=== PATIENT | male | born 1960 | race Caucasian/White ===

== ENCOUNTER 2017-01-08 19:13 | Emergency (ER) | payer SELFPAY ==
[~2017-01-08] VITALS: Ht 175.3 cm; Wt 74.5 kg
[~2017-01-08 19:13] MED LIST: ALPR1TAB2 PO; ASPI-496 PO; CARI350T PO; CLOP75TA PO; CYAN10002 IM; GUAI5SYR PO; GUAI600T22 PO; LEVO750T26 PO; LISI-170 PO; METF500T4 PO; OMEP-110 PO; OXYC1TAB8 PO; PHEN50TA4 PO; PROM25SU34 RC; SIMV20TA3 PO; TAMS-11 PO
[2017-01-08 19:17] VITALS: BP 152/86
== END 2017-01-08 20:29 | disposition home or self-care (01) ==
LOC: ED 20:26
DX: S50.01XA Contusion of right elbow, initial encounter (principal); I10 Essential (primary) hypertension; E78.00 Pure hypercholesterolemia, unspecified; E11.9 Type 2 diabetes mellitus without complications; I25.2 Old myocardial infarction; Y00.XXXA Assault by blunt object, initial encounter; Y93.89 Activity, other specified; Y92.89 Other specified places as the place of occurrence of the external cause; Y99.8 Other external cause status
CPT/HCPCS: 99283

== ENCOUNTER 2018-07-05 03:16 | Emergency (ER) | payer MEDICARE, OTHER ==
[~2018-07-05] VITALS: Ht 172.7 cm; Wt 60.0 kg
[~2018-07-05 03:16] MED LIST changes: -GUAI600T22 PO; +GUAI600T31 PO; +METF500T17 PO; -METF500T4 PO
[2018-07-05 03:19] VITALS: BP 140/83
[2018-07-05] MEDS ORDERED: IBUPROFEN 800 MG TABLET ONE (04:48)
[2018-07-05] MEDS ORDERED: IBUPROFEN 200 MG TABLET PO ONE (05:00)
== END 2018-07-05 04:56 | disposition home or self-care (01) ==
LOC: ED 04:40
DX: M25.572 Pain in left ankle and joints of left foot (principal); E78.00 Pure hypercholesterolemia, unspecified; I10 Essential (primary) hypertension; E11.9 Type 2 diabetes mellitus without complications; I25.2 Old myocardial infarction; F17.200 Nicotine dependence, unspecified, uncomplicated; Z86.73 Personal history of transient ischemic attack (TIA), and cerebral infarction without residual deficits; Z91.011 Allergy to milk products; Z88.8 Allergy status to other drugs, medicaments and biological substances
CPT/HCPCS: 99284

== ENCOUNTER 2018-07-27 09:05 | Emergency (ER) | payer MEDICARE ==
[~2018-07-27] VITALS: Ht 177.8 cm; Wt 6.0 kg
[2018-07-27 10:10] LABS: BASOPHILS # (AUTO) 0.01 x10^3/uL (0-0.1); BASOPHILS % (AUTO) 0 % (0-1); EOSINOPHILS # (AUTO) 0.24 x10^3/uL (0-0.4); EOSINOPHILS % (AUTO) 3 % (1-7); LYMPHOCYTES # (AUTO) 1.34 x10^3/uL (1-3.4); LYMPHOCYTES % (AUTO) 14 % (22-44); MD NO; MEAN CORPUSCULAR HEMOGLOBIN 31.5 pg (27.5-34.5); MEAN CORPUSCULAR HGB CONC 33.8 g/dL (33.2-36.2); MEAN PLATELET VOLUME 9.2 fL (7.4-10.4); MONOCYTES # (AUTO) 0.93 x10^3/uL (0.2-0.8); MONOCYTES % (AUTO) 10 % (2-9); NEUTROPHILS # (AUTO) 7.04 x10^3/uL (1.8-6.8); NEUTROPHILS % (AUTO) 74 % (42-75); PLATELET COUNT 180 x10^3/uL (130-400); RED BLOOD COUNT 5.55 x10^6/uL (4.38-5.82); RED CELL DISTRIBUTION WIDTH 16.9 % (9.4-14.8)
[2018-07-27 10:23] LABS: ALBUMIN 3.3 g/dL (3.4-5.0); ANION GAP 8 mmol/L (5-15); CALCIUM 8.3 mg/dL (8.5-10.1); CHLORIDE 105 mmol/L (98-107); CREATININE 0.71 mg/dL (0.7-1.3)
[2018-07-27 10:26] LABS: TROPONIN I < 0.015 ng/mL (0.000-0.045)
[2018-07-27 12:30] LABS: TROPONIN I < 0.015 ng/mL (0.000-0.045)
[2018-07-27 12:56] VITALS: BP 144/84
== END 2018-07-27 12:58 | disposition home or self-care (01) ==
LOC: ED 09:40
DX: R07.89 Other chest pain (principal); E78.00 Pure hypercholesterolemia, unspecified; I25.2 Old myocardial infarction; E11.9 Type 2 diabetes mellitus without complications; I10 Essential (primary) hypertension; E78.5 Hyperlipidemia, unspecified; I25.10 Atherosclerotic heart disease of native coronary artery without angina pectoris; Z86.73 Personal history of transient ischemic attack (TIA), and cerebral infarction without residual deficits; Z88.8 Allergy status to other drugs, medicaments and biological substances
CPT/HCPCS: 36415; 71045; 80048; 82040; 84484; 85025; 93005; 99285

== ENCOUNTER 2019-05-30 20:50 | Emergency (ER) | payer MEDICARE ==
[~2019-05-30] VITALS: Ht 177.8 cm; Wt 72.7 kg
[2019-05-31 03:29] VITALS: BP 128/88
== END 2019-05-31 03:32 | disposition home or self-care (01) ==
LOC: ED 05-31 03:00
DX: G44.221 Chronic tension-type headache, intractable (principal); Z72.9 Problem related to lifestyle, unspecified; I10 Essential (primary) hypertension; I25.10 Atherosclerotic heart disease of native coronary artery without angina pectoris; I25.2 Old myocardial infarction; E78.5 Hyperlipidemia, unspecified; E78.00 Pure hypercholesterolemia, unspecified; E11.9 Type 2 diabetes mellitus without complications; F17.200 Nicotine dependence, unspecified, uncomplicated
CPT/HCPCS: 99283

== ENCOUNTER 2019-07-16 16:54 | Inpatient (IN) | payer MEDICARE, OTHER ==
[~2019-07-16] VITALS: Ht 177.8 cm; Wt 76.8 kg
[~2019-07-16 16:54] MED LIST changes: +ASPI81TA45 PO; +DOXE25CA PO; +FLUO20CA8 PO; +METF500T PO; +NICO-486 TD; +TRAM50TA2 PO
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
--- NOTE | 2019-07-16 17:41 | NUR ---
PT IS LEGAL HOLD. NURSE PRACTIONER IS SUPPOSE TO COME HERE TO REEVAUATE THE PT AROUND 6PM.
[2019-07-16 17:42] LABS: BASOPHILS # (AUTO) 0.05 x10^3/uL (0-0.1); BASOPHILS % (AUTO) 1 % (0-1); EOSINOPHILS # (AUTO) 0.41 x10^3/uL (0-0.4); EOSINOPHILS % (AUTO) 5 % (1-7); LYMPHOCYTES # (AUTO) 1.25 x10^3/uL (1-3.4); LYMPHOCYTES % (AUTO) 16 % (22-44); MD NO; MEAN CORPUSCULAR HEMOGLOBIN 32.8 pg (27.5-34.5); MEAN CORPUSCULAR HGB CONC 33.7 g/dL (33.2-36.2); MEAN CORPUSCULAR VOLUME 97.3 fL (81-97); MONOCYTES # (AUTO) 0.67 x10^3/uL (0.2-0.8); MONOCYTES % (AUTO) 9 % (2-9); NEUTROPHILS # (AUTO) 5.34 x10^3/uL (1.8-6.8); NEUTROPHILS % (AUTO) 69 % (42-75); PLATELET COUNT 203 x10^3/uL (130-400); RED CELL DISTRIBUTION WIDTH 13.1 % (9.4-14.8)
[2019-07-16 17:47] LABS: ALBUMIN 3.3 g/dL (3.4-5.0); ANION GAP 7 mmol/L (5-15); CALCIUM 8.7 mg/dL (8.5-10.1); CHLORIDE 102 mmol/L (98-107); SALICYLATE LEVEL 2.6 mg/dL (2.8-20.0)
[2019-07-16 17:48] LABS: CREATININE 0.96 mg/dL (0.7-1.3)
--- NOTE | 2019-07-16 18:03 | NUR ---
MEAL TRAY ORDERED.
--- NOTE | 2019-07-16 18:30 | NUR ---
PT REFUSED TO CHANGE AND THIS RN TALKED TO [facility] NURSE. SHE STATES "PT IS SLEEPING AND JUST LEAVE HIM ALONE UNTILL NURSE PRACTIONER COMES HERE."
--- NOTE | 2019-07-16 18:36 | NUR ---
PT IS NOT ABLE TO PROVIDE URINE SAMPLE AT THIS TIME.
--- NOTE | 2019-07-16 18:58 | NUR ---
REPORT GIVEN TO YARIEL WEEKS.
--- NOTE | 2019-07-16 19:52 | NUR ---
assumed care of pt hold disolved by yeison kemp per emi charge, pt to be admitted at this time
[2019-07-16] MEDS ORDERED: DOXEPIN 25 MG CAPSULE PO PRN (20:00)
[2019-07-16 22:30] VITALS: BP 157/88
[2019-07-17] MEDS: ENOXAPARIN 40 MG/0.4 ML SQ SCH ×2 (00:30→23:39)
[2019-07-17] MEDS ORDERED: hydrALAzine 20 MG/ML, 1ML IVPush PRN (00:30)
[2019-07-17] MEDS ORDERED: ACETAMINOPHEN 325 MG TABLET PO PRN (00:30)
[2019-07-17 01:58] VITALS: BP 149/81
[2019-07-17 02:47] LABS: AMPHETAMINE SCREEN, URINE Negative (Negative); BARBITURATE SCREEN, URINE Negative (Negative); BENZODIAZEPINE SCREEN, URINE Negative (Negative); CANNABINOID SCREEN, URINE Negative (Negative); COCAINE SCREEN, URINE Negative (Negative); METHADONE SCREEN, URINE Negative (Negative); OPIATE SCREEN, URINE Negative (Negative)
[2019-07-17] MEDS: TRAZODONE 50MG TABLET PO PRN (04:45)
[2019-07-17] MEDS: LIDODERM 5% PATCH TD PRN (04:46)
[2019-07-17 08:48] VITALS: BP 157/91
[2019-07-17] MEDS: LISINOPRIL 20 MG TABLET PO SCH (10:30)
[2019-07-17] MEDS: ASPIRIN 81 MG TABLET EC PO SCH (10:30)
[2019-07-17] MEDS: metFORMIN 500 MG TABLET PO SCH ×2 (10:30→19:33)
[2019-07-17] MEDS: FLUOXETINE HCL 20 MG CAPSULE PO SCH (10:30)
[2019-07-17 12:14] LABS: HEMOGLOBIN A1C 6.9 % (4.2-6.3)
[2019-07-17 13:20] VITALS: BP 138/62
[2019-07-17 18:53] VITALS: BP 126/78
[2019-07-17] MEDS: SIMVASTATIN 20 MG TABLET PO SCH (19:34)
[2019-07-17 21:11] LABS: MICROSCOPIC INDICATED
[2019-07-18 02:22] VITALS: BP 121/65
[2019-07-18 06:09] LABS: BASOPHILS # (AUTO) 0.07 x10^3/uL (0-0.1); BASOPHILS % (AUTO) 1 % (0-1); EOSINOPHILS # (AUTO) 0.43 x10^3/uL (0-0.4); EOSINOPHILS % (AUTO) 6 % (1-7); LYMPHOCYTES # (AUTO) 2.18 x10^3/uL (1-3.4); LYMPHOCYTES % (AUTO) 30 % (22-44); MD NO; MEAN CORPUSCULAR HEMOGLOBIN 33.1 pg (27.5-34.5); MEAN CORPUSCULAR HGB CONC 33.8 g/dL (33.2-36.2); MEAN CORPUSCULAR VOLUME 97.9 fL (81-97); MEAN PLATELET VOLUME 9.7 fL (7.4-10.4); MONOCYTES # (AUTO) 0.72 x10^3/uL (0.2-0.8); MONOCYTES % (AUTO) 10 % (2-9); NEUTROPHILS % (AUTO) 53 % (42-75); PLATELET COUNT 175 x10^3/uL (130-400); RED BLOOD COUNT 4.41 x10^6/uL (4.38-5.82); RED CELL DISTRIBUTION WIDTH 12.9 % (9.4-14.8)
[2019-07-18 06:27] LABS: ANION GAP 6 mmol/L (5-15); CALCIUM 8.3 mg/dL (8.5-10.1); CHLORIDE 107 mmol/L (98-107); CREATININE 0.73 mg/dL (0.7-1.3)
[2019-07-18 07:30] VITALS: BP 134/81
[2019-07-18] MEDS: LISINOPRIL 20 MG TABLET PO SCH (08:09)
[2019-07-18] MEDS: ASPIRIN 81 MG TABLET EC PO SCH (08:10)
[2019-07-18] MEDS: metFORMIN 500 MG TABLET PO SCH ×2 (08:10→19:55)
[2019-07-18] MEDS: FLUOXETINE HCL 20 MG CAPSULE PO SCH ×2 (08:10→13:00)
[2019-07-18] MEDS ORDERED: LORazepam 2 MG/ML, 1ML IVPush ONE (09:00)
[2019-07-18] MEDS: CYANOCOBALAMIN 1,000 MCG/ML, 1ML IM SCH (09:00)
[2019-07-18] MEDS ORDERED: GADOTERATE 7.5 MMOL/15 ML SYR ONE (10:15)
[2019-07-18 13:50] VITALS: BP 138/62
[2019-07-18 19:11] VITALS: BP 152/83
[2019-07-18] MEDS: SIMVASTATIN 20 MG TABLET PO SCH (19:55)
[2019-07-18] MEDS: DOXEPIN 25 MG CAPSULE PO SCH (19:55)
[2019-07-19 03:31] VITALS: BP 144/87
[2019-07-19 07:10] VITALS: BP 163/93
[2019-07-19] MEDS: FLUOXETINE HCL 20 MG CAPSULE PO SCH ×2 (09:00→09:50)
[2019-07-19] MEDS: CYANOCOBALAMIN 1,000 MCG/ML, 1ML IM SCH (09:00)
[2019-07-19] MEDS: ENOXAPARIN 40 MG/0.4 ML SQ SCH (09:00)
[2019-07-19] MEDS: ASPIRIN 81 MG TABLET EC PO SCH (09:50)
[2019-07-19] MEDS: LISINOPRIL 20 MG TABLET PO SCH (09:50)
[2019-07-19] MEDS: metFORMIN 500 MG TABLET PO SCH ×2 (09:50→21:02)
[2019-07-19 15:30] VITALS: BP 167/76
[2019-07-19 18:59] VITALS: BP 148/77
[2019-07-19] MEDS: SIMVASTATIN 20 MG TABLET PO SCH (21:03)
[2019-07-19] MEDS: DOXEPIN 25 MG CAPSULE PO SCH (21:03)
[2019-07-20 01:52] VITALS: BP 146/84
[2019-07-20] MEDS: LIDODERM 5% PATCH TD PRN (02:17)
[2019-07-20 07:03] VITALS: BP 137/74
[2019-07-20] MEDS: CYANOCOBALAMIN 1,000 MCG/ML, 1ML IM SCH (09:00)
[2019-07-20] MEDS: FLUOXETINE HCL 20 MG CAPSULE PO SCH ×2 (09:00→09:39)
[2019-07-20] MEDS: ENOXAPARIN 40 MG/0.4 ML SQ SCH (09:00)
[2019-07-20] MEDS: LISINOPRIL 20 MG TABLET PO SCH (09:39)
[2019-07-20] MEDS: ASPIRIN 81 MG TABLET EC PO SCH (09:39)
[2019-07-20] MEDS: metFORMIN 500 MG TABLET PO SCH ×2 (09:39→20:34)
[2019-07-20 14:10] VITALS: BP 137/78
[2019-07-20 18:33] VITALS: BP 125/79
[2019-07-20] MEDS: DOXEPIN 25 MG CAPSULE PO SCH (20:34)
[2019-07-20] MEDS: SIMVASTATIN 20 MG TABLET PO SCH (20:34)
[2019-07-21 01:28] VITALS: BP 146/93
[2019-07-21 07:35] VITALS: BP 121/65
[2019-07-21] MEDS: LISINOPRIL 20 MG TABLET PO SCH (08:26)
[2019-07-21] MEDS: ASPIRIN 81 MG TABLET EC PO SCH (08:26)
[2019-07-21] MEDS: FLUOXETINE HCL 20 MG CAPSULE PO SCH ×2 (08:26→08:27)
[2019-07-21] MEDS: metFORMIN 500 MG TABLET PO SCH ×2 (08:26→20:43)
[2019-07-21] MEDS: ENOXAPARIN 40 MG/0.4 ML SQ SCH (08:27)
[2019-07-21] MEDS: CYANOCOBALAMIN 1,000 MCG/ML, 1ML IM SCH (09:08)
[2019-07-21] MEDS ORDERED: FLU VAC QS 19-20(4YR UP)CEL/PF 0.5 ML IM-VACC ONE (09:30)
[2019-07-21] MEDS ORDERED: FLU VACC QS2019-20 36MOS UP/PF 0.5 ML IM-VACC ONE ×2 (09:30→10:30)
[2019-07-21 13:15] VITALS: BP 142/75
[2019-07-21 19:56] VITALS: BP 136/78
[2019-07-21] MEDS: SIMVASTATIN 20 MG TABLET PO SCH (20:43)
[2019-07-21] MEDS: DOXEPIN 25 MG CAPSULE PO SCH (20:44)
[2019-07-22 00:30] VITALS: BP 145/85
[2019-07-22 05:30] LABS: ANION GAP 6 mmol/L (5-15); CALCIUM 8.5 mg/dL (8.5-10.1); CHLORIDE 105 mmol/L (98-107)
[2019-07-22 05:31] LABS: CREATININE 0.68 mg/dL (0.7-1.3)
[2019-07-22 08:08] VITALS: BP 144/74
[2019-07-22] MEDS: CYANOCOBALAMIN 1,000 MCG/ML, 1ML IM SCH (09:00)
[2019-07-22] MEDS: metFORMIN 500 MG TABLET PO SCH ×2 (09:50→21:26)
[2019-07-22] MEDS: ASPIRIN 81 MG TABLET EC PO SCH (09:50)
[2019-07-22] MEDS: FLUOXETINE HCL 20 MG CAPSULE PO SCH (09:50)
[2019-07-22] MEDS: LISINOPRIL 20 MG TABLET PO SCH (09:50)
[2019-07-22] MEDS: ENOXAPARIN 40 MG/0.4 ML SQ SCH (09:57)
[2019-07-22 14:10] VITALS: BP 136/82
[2019-07-22] MEDS: POTASSIUM CHLORIDE 20 MEQ TAB.ER.PRT PO SCH ×2 (17:04→18:29)
[2019-07-22] MEDS: DOCUSATE 100 MG CAPSULE PO PRN (18:29)
[2019-07-22 20:16] VITALS: BP 128/65
[2019-07-22] MEDS: DOXEPIN 25 MG CAPSULE PO SCH (21:25)
[2019-07-22] MEDS: SIMVASTATIN 20 MG TABLET PO SCH (21:26)
[2019-07-23 01:13] VITALS: BP 138/75
[2019-07-23 05:55] LABS: CHLORIDE 107 mmol/L (98-107)
[2019-07-23 05:59] LABS: ANION GAP 6 mmol/L (5-15); CALCIUM 9.2 mg/dL (8.5-10.1); CREATININE 0.67 mg/dL (0.7-1.3)
[2019-07-23] MEDS: CYANOCOBALAMIN 1,000 MCG/ML, 1ML IM SCH (09:00)
[2019-07-23 09:02] VITALS: BP 143/87
[2019-07-23] MEDS: metFORMIN 500 MG TABLET PO SCH ×2 (09:54→20:48)
[2019-07-23] MEDS: LISINOPRIL 20 MG TABLET PO SCH (09:54)
[2019-07-23] MEDS: ASPIRIN 81 MG TABLET EC PO SCH (09:54)
[2019-07-23] MEDS: FLUOXETINE HCL 20 MG CAPSULE PO SCH (09:54)
[2019-07-23] MEDS: ENOXAPARIN 40 MG/0.4 ML SQ SCH (09:55)
[2019-07-23] MEDS: LIDODERM 5% PATCH TD PRN (09:55)
--- NOTE | 2019-07-23 11:42 | NUR ---
REC: Suhas/darleen; wil salomon per patient request Addendum: 07/23/19 at 1143 by Cassandra MORAN Amended: Links added.
[2019-07-23] MEDS: POLYETHYLENE GLYCOL 17 GM PACKET PO SCH (12:00)
[2019-07-23 13:54] VITALS: BP 149/80
[2019-07-23 18:51] VITALS: BP 138/78
[2019-07-23] MEDS: SIMVASTATIN 20 MG TABLET PO SCH (20:29)
[2019-07-23] MEDS: DOXEPIN 25 MG CAPSULE PO SCH (20:30)
[2019-07-23] MEDS: HYDROcodone/APAP 5/325 TABLET PO PRN (21:33)
[2019-07-24 01:23] VITALS: BP 117/72
[2019-07-24] MEDS: CYANOCOBALAMIN 1,000 MCG/ML, 1ML IM SCH (09:00)
[2019-07-24] MEDS: metFORMIN 500 MG TABLET PO SCH ×2 (09:07→20:04)
[2019-07-24] MEDS: FLUOXETINE HCL 20 MG CAPSULE PO SCH (09:08)
[2019-07-24] MEDS: LISINOPRIL 20 MG TABLET PO SCH (09:08)
[2019-07-24] MEDS: ASPIRIN 81 MG TABLET EC PO SCH (09:08)
[2019-07-24] MEDS: ENOXAPARIN 40 MG/0.4 ML SQ SCH (09:08)
[2019-07-24 09:41] VITALS: BP 133/80
[2019-07-24] MEDS: POLYETHYLENE GLYCOL 17 GM PACKET PO SCH (09:54)
[2019-07-24] MEDS ORDERED: HYDROcodone/APAP 10/325 MG TABLET ONE (10:21)
[2019-07-24] MEDS: HYDROcodone/APAP 5/325 TABLET PO PRN ×3 (10:39→20:04)
[2019-07-24 13:34] VITALS: BP 125/75
[2019-07-24] MEDS: DOCUSATE 100 MG CAPSULE PO PRN (14:06)
[2019-07-24 19:32] VITALS: BP 130/79
[2019-07-24] MEDS: DOXEPIN 25 MG CAPSULE PO SCH (20:03)
[2019-07-24] MEDS: SIMVASTATIN 20 MG TABLET PO SCH (20:04)
[2019-07-24] MEDS: TRAZODONE 50MG TABLET PO PRN (22:05)
[2019-07-25 02:03] VITALS: BP 118/72
[2019-07-25] MEDS: POLYETHYLENE GLYCOL 17 GM PACKET PO SCH (08:44)
[2019-07-25] MEDS: metFORMIN 500 MG TABLET PO SCH ×2 (08:44→20:05)
[2019-07-25] MEDS: CYANOCOBALAMIN 1,000 MCG TABLET PO SCH (08:44)
[2019-07-25] MEDS: FLUOXETINE HCL 20 MG CAPSULE PO SCH (08:44)
[2019-07-25] MEDS: ASPIRIN 81 MG TABLET EC PO SCH (08:44)
[2019-07-25] MEDS: LISINOPRIL 20 MG TABLET PO SCH (08:45)
[2019-07-25] MEDS: ENOXAPARIN 40 MG/0.4 ML SQ SCH (08:45)
[2019-07-25] MEDS: HYDROcodone/APAP 5/325 TABLET PO PRN ×2 (08:54→17:11)
[2019-07-25 08:56] VITALS: BP 145/68
[2019-07-25 14:13] VITALS: BP_SYST 115; BP_SYST 135; BP_DIAS 62; BP_DIAS 81
[2019-07-25 18:11] LABS: BASOPHILS # (AUTO) 0.03 x10^3/uL (0-0.1); BASOPHILS % (AUTO) 0 % (0-1); EOSINOPHILS # (AUTO) 0.57 x10^3/uL (0-0.4); EOSINOPHILS % (AUTO) 6 % (1-7); LYMPHOCYTES # (AUTO) 1.35 x10^3/uL (1-3.4); LYMPHOCYTES % (AUTO) 14 % (22-44); MD NO; MEAN CORPUSCULAR HEMOGLOBIN 32.5 pg (27.5-34.5); MEAN CORPUSCULAR HGB CONC 32.5 g/dL (33.2-36.2); MEAN PLATELET VOLUME 10.3 fL (7.4-10.4); MONOCYTES # (AUTO) 0.74 x10^3/uL (0.2-0.8); MONOCYTES % (AUTO) 8 % (2-9); NEUTROPHILS # (AUTO) 7.05 x10^3/uL (1.8-6.8); NEUTROPHILS % (AUTO) 72 % (42-75); PLATELET COUNT 166 x10^3/uL (130-400)
[2019-07-25 18:18] LABS: INTERNATIONAL NORMALIZED RATIO 1.08 (0.93-1.1); PROTHROMBIN TIME 11.3 Seconds (9.6-11.5)
[2019-07-25 18:21] LABS: ANION GAP 5 mmol/L (5-15); CALCIUM 8.6 mg/dL (8.5-10.1); CHLORIDE 105 mmol/L (98-107); CREATININE 0.85 mg/dL (0.7-1.3)
[2019-07-25 18:46] VITALS: BP 127/64
[2019-07-25] MEDS: DOXEPIN 25 MG CAPSULE PO SCH (20:04)
[2019-07-25] MEDS: SIMVASTATIN 20 MG TABLET PO SCH (20:04)
[2019-07-26 00:17] VITALS: BP 127/78
[2019-07-26] MEDS: HYDROcodone/APAP 5/325 TABLET PO PRN ×3 (00:24→17:43)
[2019-07-26] MEDS: metFORMIN 500 MG TABLET PO SCH ×2 (08:15→20:24)
[2019-07-26] MEDS: ASPIRIN 81 MG TABLET EC PO SCH (08:15)
[2019-07-26] MEDS: POLYETHYLENE GLYCOL 17 GM PACKET PO SCH (08:15)
[2019-07-26] MEDS: LISINOPRIL 20 MG TABLET PO SCH (08:15)
[2019-07-26] MEDS: FLUOXETINE HCL 20 MG CAPSULE PO SCH (08:15)
[2019-07-26] MEDS: CYANOCOBALAMIN 1,000 MCG TABLET PO SCH (08:16)
[2019-07-26] MEDS: ENOXAPARIN 40 MG/0.4 ML SQ SCH (08:16)
[2019-07-26 08:37] VITALS: BP 133/83
[2019-07-26 14:43] VITALS: BP 123/74
[2019-07-26] MEDS: DOCUSATE 100 MG CAPSULE PO PRN (17:43)
[2019-07-26 19:41] VITALS: BP 151/78
[2019-07-26] MEDS: DOXEPIN 25 MG CAPSULE PO SCH (20:24)
[2019-07-26] MEDS: SIMVASTATIN 20 MG TABLET PO SCH (20:24)
[2019-07-26] MEDS: TRAZODONE 50MG TABLET PO PRN (20:24)
[2019-07-27 01:31] VITALS: BP 132/77
[2019-07-27 08:35] VITALS: BP 115/74
[2019-07-27] MEDS: CYANOCOBALAMIN 1,000 MCG TABLET PO SCH (08:56)
[2019-07-27] MEDS: ENOXAPARIN 40 MG/0.4 ML SQ SCH (08:56)
[2019-07-27] MEDS: POLYETHYLENE GLYCOL 17 GM PACKET PO SCH (08:56)
[2019-07-27] MEDS: ASPIRIN 81 MG TABLET EC PO SCH (08:56)
[2019-07-27] MEDS: HYDROcodone/APAP 5/325 TABLET PO PRN ×3 (08:57→21:10)
[2019-07-27] MEDS: FLUOXETINE HCL 20 MG CAPSULE PO SCH (08:57)
[2019-07-27] MEDS: metFORMIN 500 MG TABLET PO SCH ×2 (08:58→21:09)
[2019-07-27] MEDS: LISINOPRIL 20 MG TABLET PO SCH (08:58)
[2019-07-27] MEDS: GABAPENTIN 100 MG CAPSULE PO PRN ×2 (12:19→21:09)
[2019-07-27 14:57] VITALS: BP 136/77
[2019-07-27 19:04] VITALS: BP 126/80
[2019-07-27] MEDS: DOXEPIN 25 MG CAPSULE PO SCH (21:08)
[2019-07-27] MEDS: SIMVASTATIN 20 MG TABLET PO SCH (21:09)
[2019-07-27] MEDS: TRAZODONE 50MG TABLET PO PRN (21:12)
[2019-07-28 04:00] VITALS: BP 143/76
[2019-07-28 08:00] VITALS: BP 130/79
[2019-07-28] MEDS: CYANOCOBALAMIN 1,000 MCG TABLET PO SCH (09:00)
[2019-07-28] MEDS: ENOXAPARIN 40 MG/0.4 ML SQ SCH (09:00)
[2019-07-28] MEDS: metFORMIN 500 MG TABLET PO SCH ×2 (09:00→19:58)
[2019-07-28] MEDS: ASPIRIN 81 MG TABLET EC PO SCH (09:00)
[2019-07-28] MEDS: POLYETHYLENE GLYCOL 17 GM PACKET PO SCH (09:00)
[2019-07-28] MEDS: FLUOXETINE HCL 20 MG CAPSULE PO SCH (09:00)
[2019-07-28] MEDS: GABAPENTIN 100 MG CAPSULE PO PRN ×2 (09:01→19:58)
[2019-07-28] MEDS: HYDROcodone/APAP 5/325 TABLET PO PRN ×2 (09:01→19:57)
[2019-07-28] MEDS: LISINOPRIL 20 MG TABLET PO SCH (09:02)
[2019-07-28 15:11] VITALS: BP 112/71
[2019-07-28 18:41] VITALS: BP 122/71
[2019-07-28] MEDS: DOXEPIN 25 MG CAPSULE PO SCH (19:57)
[2019-07-28] MEDS: TRAZODONE 50MG TABLET PO PRN ×2 (19:58→20:51)
[2019-07-28] MEDS: SIMVASTATIN 20 MG TABLET PO SCH (19:58)
[2019-07-29 00:38] VITALS: BP 115/66
[2019-07-29] MEDS: HYDROcodone/APAP 5/325 TABLET PO PRN ×4 (03:46→23:26)
[2019-07-29 05:09] LABS: CREATININE 0.67 mg/dL (0.7-1.3)
[2019-07-29 07:14] VITALS: BP 109/63
[2019-07-29] MEDS: ASPIRIN 81 MG TABLET EC PO SCH (10:03)
[2019-07-29] MEDS: metFORMIN 500 MG TABLET PO SCH ×2 (10:03→20:11)
[2019-07-29] MEDS: CYANOCOBALAMIN 1,000 MCG TABLET PO SCH (10:04)
[2019-07-29] MEDS: FLUOXETINE HCL 20 MG CAPSULE PO SCH (10:05)
[2019-07-29] MEDS: LISINOPRIL 20 MG TABLET PO SCH (10:05)
[2019-07-29] MEDS: DOCUSATE 100 MG CAPSULE PO PRN (10:09)
[2019-07-29] MEDS: POLYETHYLENE GLYCOL 17 GM PACKET PO SCH (10:10)
[2019-07-29] MEDS: ENOXAPARIN 40 MG/0.4 ML SQ SCH (10:13)
[2019-07-29 13:35] VITALS: BP 117/71
[2019-07-29 19:41] VITALS: BP 147/88
[2019-07-29] MEDS: SIMVASTATIN 20 MG TABLET PO SCH (20:11)
[2019-07-29] MEDS: DOXEPIN 25 MG CAPSULE PO SCH (20:11)
[2019-07-29] MEDS: TRAZODONE 50MG TABLET PO PRN (21:16)
[2019-07-30 00:13] VITALS: BP 109/61
[2019-07-30 07:00] VITALS: BP 151/82
[2019-07-30] MEDS: FLUOXETINE HCL 20 MG CAPSULE PO SCH (10:19)
[2019-07-30] MEDS: CYANOCOBALAMIN 1,000 MCG TABLET PO SCH (10:19)
[2019-07-30] MEDS: ASPIRIN 81 MG TABLET EC PO SCH (10:19)
[2019-07-30] MEDS: ENOXAPARIN 40 MG/0.4 ML SQ SCH (10:21)
[2019-07-30] MEDS: POLYETHYLENE GLYCOL 17 GM PACKET PO SCH (10:22)
[2019-07-30] MEDS: metFORMIN 500 MG TABLET PO SCH ×2 (10:29→17:21)
[2019-07-30] MEDS: HYDROcodone/APAP 5/325 TABLET PO PRN ×2 (10:31→17:23)
[2019-07-30] MEDS: LISINOPRIL 20 MG TABLET PO SCH (10:33)
[2019-07-30 13:35] VITALS: BP 163/90
[2019-07-30 19:50] VITALS: BP 150/76
[2019-07-30] MEDS: DOXEPIN 25 MG CAPSULE PO SCH (20:16)
[2019-07-30] MEDS: SIMVASTATIN 20 MG TABLET PO SCH (20:16)
[2019-07-31 01:39] VITALS: BP 132/63
[2019-07-31] MEDS: HYDROcodone/APAP 5/325 TABLET PO PRN ×4 (01:53→22:58)
[2019-07-31] MEDS: ASPIRIN 81 MG TABLET EC PO SCH (08:47)
[2019-07-31] MEDS: FLUOXETINE HCL 20 MG CAPSULE PO SCH (08:47)
[2019-07-31] MEDS: metFORMIN 500 MG TABLET PO SCH ×2 (08:47→16:47)
[2019-07-31] MEDS: POLYETHYLENE GLYCOL 17 GM PACKET PO SCH (08:48)
[2019-07-31] MEDS: LISINOPRIL 20 MG TABLET PO SCH (08:48)
[2019-07-31] MEDS: ENOXAPARIN 40 MG/0.4 ML SQ SCH (08:48)
[2019-07-31] MEDS: CYANOCOBALAMIN 1,000 MCG TABLET PO SCH (08:48)
[2019-07-31 10:56] VITALS: BP 128/75
[2019-07-31 15:31] VITALS: BP 136/77
[2019-07-31 19:49] VITALS: BP 137/77
[2019-07-31] MEDS: DOXEPIN 25 MG CAPSULE PO SCH (20:09)
[2019-07-31] MEDS: SIMVASTATIN 20 MG TABLET PO SCH (20:09)
[2019-08-01 00:34] VITALS: BP 158/72
[2019-08-01] MEDS: TRAZODONE 50MG TABLET PO PRN ×2 (00:38→22:59)
[2019-08-01 05:13] LABS: CREATININE 0.69 mg/dL (0.7-1.3)
[2019-08-01] MEDS: FLUOXETINE HCL 20 MG CAPSULE PO SCH (07:56)
[2019-08-01] MEDS: ASPIRIN 81 MG TABLET EC PO SCH (07:57)
[2019-08-01] MEDS: metFORMIN 500 MG TABLET PO SCH ×2 (07:57→16:22)
[2019-08-01] MEDS: HYDROcodone/APAP 5/325 TABLET PO PRN ×3 (07:57→22:28)
[2019-08-01] MEDS: LISINOPRIL 20 MG TABLET PO SCH (07:57)
[2019-08-01 08:10] VITALS: BP 142/83
[2019-08-01] MEDS: ENOXAPARIN 40 MG/0.4 ML SQ SCH (09:00)
[2019-08-01] MEDS: CYANOCOBALAMIN 1,000 MCG TABLET PO SCH (09:00)
[2019-08-01] MEDS: POLYETHYLENE GLYCOL 17 GM PACKET PO SCH (09:00)
[2019-08-01 14:37] VITALS: BP 144/77
[2019-08-01 19:37] VITALS: BP 137/81
[2019-08-01] MEDS: SIMVASTATIN 20 MG TABLET PO SCH (20:13)
[2019-08-01] MEDS: DOXEPIN 25 MG CAPSULE PO SCH (20:13)
[2019-08-02 00:30] VITALS: BP 120/76
[2019-08-02 06:58] VITALS: BP 123/72
[2019-08-02] MEDS: ENOXAPARIN 40 MG/0.4 ML SQ SCH (08:12)
[2019-08-02] MEDS: CYANOCOBALAMIN 1,000 MCG TABLET PO SCH (08:12)
[2019-08-02] MEDS: metFORMIN 500 MG TABLET PO SCH ×2 (08:12→16:34)
[2019-08-02] MEDS: FLUOXETINE HCL 20 MG CAPSULE PO SCH (08:13)
[2019-08-02] MEDS: LISINOPRIL 20 MG TABLET PO SCH (08:13)
[2019-08-02] MEDS: ASPIRIN 81 MG TABLET EC PO SCH (08:13)
[2019-08-02] MEDS: POLYETHYLENE GLYCOL 17 GM PACKET PO SCH (08:13)
[2019-08-02] MEDS: HYDROcodone/APAP 5/325 TABLET PO PRN ×3 (08:17→22:49)
[2019-08-02 14:01] VITALS: BP 134/79
[2019-08-02 19:06] VITALS: BP 131/74
[2019-08-02] MEDS: SIMVASTATIN 20 MG TABLET PO SCH (20:18)
[2019-08-02] MEDS: DOXEPIN 25 MG CAPSULE PO SCH (20:19)
[2019-08-03 01:13] VITALS: BP 145/86
[2019-08-03] MEDS: HYDROcodone/APAP 5/325 TABLET PO PRN ×3 (05:05→23:44)
[2019-08-03] MEDS: POLYETHYLENE GLYCOL 17 GM PACKET PO SCH (07:39)
[2019-08-03] MEDS: ASPIRIN 81 MG TABLET EC PO SCH (08:18)
[2019-08-03] MEDS: ENOXAPARIN 40 MG/0.4 ML SQ SCH (08:19)
[2019-08-03] MEDS: LISINOPRIL 20 MG TABLET PO SCH (08:19)
[2019-08-03] MEDS: FLUOXETINE HCL 20 MG CAPSULE PO SCH (08:19)
[2019-08-03] MEDS: metFORMIN 500 MG TABLET PO SCH ×2 (08:19→16:54)
[2019-08-03] MEDS: CYANOCOBALAMIN 1,000 MCG TABLET PO SCH (08:19)
[2019-08-03 08:40] VITALS: BP 131/57
[2019-08-03 15:02] VITALS: BP 147/70
[2019-08-03 18:57] VITALS: BP 126/73
[2019-08-03] MEDS: SIMVASTATIN 20 MG TABLET PO SCH (20:20)
[2019-08-03] MEDS: DOXEPIN 25 MG CAPSULE PO SCH (20:20)
[2019-08-03] MEDS: TRAZODONE 50MG TABLET PO PRN (23:51)
[2019-08-04 01:46] VITALS: BP 146/66
[2019-08-04 05:23] LABS: CREATININE 0.75 mg/dL (0.7-1.3)
[2019-08-04 07:46] VITALS: BP 136/77
[2019-08-04] MEDS: POLYETHYLENE GLYCOL 17 GM PACKET PO SCH (08:31)
[2019-08-04] MEDS: ASPIRIN 81 MG TABLET EC PO SCH (08:32)
[2019-08-04] MEDS: metFORMIN 500 MG TABLET PO SCH ×2 (08:32→16:58)
[2019-08-04] MEDS: CYANOCOBALAMIN 1,000 MCG TABLET PO SCH (08:32)
[2019-08-04] MEDS: ENOXAPARIN 40 MG/0.4 ML SQ SCH (08:32)
[2019-08-04] MEDS: LISINOPRIL 20 MG TABLET PO SCH (08:32)
[2019-08-04] MEDS: FLUOXETINE HCL 20 MG CAPSULE PO SCH (08:32)
[2019-08-04] MEDS: HYDROcodone/APAP 5/325 TABLET PO PRN ×3 (08:42→20:26)
[2019-08-04 15:12] VITALS: BP 153/75
[2019-08-04 20:15] VITALS: BP 133/75
[2019-08-04] MEDS: SIMVASTATIN 20 MG TABLET PO SCH (20:25)
[2019-08-04] MEDS: DOXEPIN 25 MG CAPSULE PO SCH (20:26)
[2019-08-05 01:36] VITALS: BP 125/77
[2019-08-05] MEDS: HYDROcodone/APAP 5/325 TABLET PO PRN ×4 (05:16→23:06)
[2019-08-05 07:54] VITALS: BP 135/83
[2019-08-05] MEDS: POLYETHYLENE GLYCOL 17 GM PACKET PO SCH (09:00)
[2019-08-05] MEDS: ASPIRIN 81 MG TABLET EC PO SCH (09:07)
[2019-08-05] MEDS: metFORMIN 500 MG TABLET PO SCH ×2 (09:07→17:21)
[2019-08-05] MEDS: FLUOXETINE HCL 20 MG CAPSULE PO SCH (09:08)
[2019-08-05] MEDS: CYANOCOBALAMIN 1,000 MCG TABLET PO SCH (09:08)
[2019-08-05] MEDS: LISINOPRIL 20 MG TABLET PO SCH (09:08)
[2019-08-05] MEDS: ENOXAPARIN 40 MG/0.4 ML SQ SCH (09:08)
[2019-08-05 12:33] VITALS: BP 152/80
[2019-08-05 19:12] VITALS: BP 158/87
[2019-08-05] MEDS: DOXEPIN 25 MG CAPSULE PO SCH (22:31)
[2019-08-05] MEDS: SIMVASTATIN 20 MG TABLET PO SCH (22:32)
[2019-08-05] MEDS: TRAZODONE 50MG TABLET PO PRN (23:06)
[2019-08-06 00:24] VITALS: BP 126/73
[2019-08-06 06:55] VITALS: BP 128/73
[2019-08-06] MEDS: metFORMIN 500 MG TABLET PO SCH ×2 (08:17→16:36)
[2019-08-06] MEDS: LISINOPRIL 20 MG TABLET PO SCH (08:18)
[2019-08-06] MEDS: CYANOCOBALAMIN 1,000 MCG TABLET PO SCH (08:18)
[2019-08-06] MEDS: POLYETHYLENE GLYCOL 17 GM PACKET PO SCH (08:18)
[2019-08-06] MEDS: HYDROcodone/APAP 5/325 TABLET PO PRN ×3 (08:18→22:06)
[2019-08-06] MEDS: ASPIRIN 81 MG TABLET EC PO SCH (08:18)
[2019-08-06] MEDS: FLUOXETINE HCL 20 MG CAPSULE PO SCH (08:18)
[2019-08-06] MEDS: ENOXAPARIN 40 MG/0.4 ML SQ SCH (08:19)
[2019-08-06 13:04] VITALS: BP 138/81
[2019-08-06] MEDS: CARBAMIDE PEROXIDE EAR DROPS 6.5%, 15ML EACH EAR PRN (16:36)
[2019-08-06 19:15] VITALS: BP 134/79
[2019-08-06] MEDS: DOXEPIN 25 MG CAPSULE PO SCH (21:23)
[2019-08-06] MEDS: SIMVASTATIN 20 MG TABLET PO SCH (21:24)
[2019-08-06] MEDS: TRAZODONE 50MG TABLET PO PRN (22:06)
[2019-08-07 01:35] VITALS: BP 139/72
[2019-08-07 05:38] LABS: CREATININE 0.73 mg/dL (0.7-1.3)
[2019-08-07 07:00] VITALS: BP 167/85
[2019-08-07] MEDS: POLYETHYLENE GLYCOL 17 GM PACKET PO SCH (08:50)
[2019-08-07] MEDS: FLUOXETINE HCL 20 MG CAPSULE PO SCH (08:51)
[2019-08-07] MEDS: ASPIRIN 81 MG TABLET EC PO SCH (08:51)
[2019-08-07] MEDS: metFORMIN 500 MG TABLET PO SCH ×2 (08:51→17:14)
[2019-08-07] MEDS: LISINOPRIL 20 MG TABLET PO SCH (08:51)
[2019-08-07] MEDS: ENOXAPARIN 40 MG/0.4 ML SQ SCH (08:51)
[2019-08-07] MEDS: CYANOCOBALAMIN 1,000 MCG TABLET PO SCH (08:51)
[2019-08-07] MEDS: HYDROcodone/APAP 5/325 TABLET PO PRN ×3 (09:02→21:31)
[2019-08-07] MEDS: CARBAMIDE PEROXIDE EAR DROPS 6.5%, 15ML EACH EAR PRN (10:17)
[2019-08-07 14:15] VITALS: BP 130/81
[2019-08-07] MEDS ORDERED: GABA-826 PO (15:34)
[2019-08-07] MEDS ORDERED: DOCU-131 PO (15:34)
[2019-08-07] MEDS ORDERED: DOXE25CA PO (15:34)
[2019-08-07] MEDS ORDERED: CARB-136 EACH EAR (15:34)
[2019-08-07] MEDS ORDERED: ASPI81TA45 PO (15:34)
[2019-08-07] MEDS ORDERED: CYAN-27 PO (15:34)
[2019-08-07] MEDS ORDERED: ACET325T26 PO (15:34)
[2019-08-07] MEDS ORDERED: HYDR-3237 PO (15:34)
[2019-08-07] MEDS ORDERED: FLUO20CA8 PO (15:34)
[2019-08-07] MEDS ORDERED: METF500T PO (15:34)
[2019-08-07] MEDS ORDERED: SIMV20TA3 PO (15:34)
[2019-08-07] MEDS ORDERED: POLY17PO5 PO (15:34)
[2019-08-07] MEDS ORDERED: LISI-170 PO (15:34)
[2019-08-07] MEDS: SIMVASTATIN 20 MG TABLET PO SCH (19:38)
[2019-08-07] MEDS: DOXEPIN 25 MG CAPSULE PO SCH (19:38)
[2019-08-07 19:41] VITALS: BP 163/91
[2019-08-07] MEDS: TRAZODONE 50MG TABLET PO PRN (21:31)
[2019-08-08 01:22] VITALS: BP 157/78
[2019-08-08] MEDS: HYDROcodone/APAP 5/325 TABLET PO PRN ×2 (03:31→13:59)
[2019-08-08 07:00] VITALS: BP 145/81
[2019-08-08] MEDS: ASPIRIN 81 MG TABLET EC PO SCH (08:36)
[2019-08-08] MEDS: POLYETHYLENE GLYCOL 17 GM PACKET PO SCH (08:36)
[2019-08-08] MEDS: CYANOCOBALAMIN 1,000 MCG TABLET PO SCH (08:37)
[2019-08-08] MEDS: FLUOXETINE HCL 20 MG CAPSULE PO SCH (08:37)
[2019-08-08] MEDS: LISINOPRIL 20 MG TABLET PO SCH (08:37)
[2019-08-08] MEDS: metFORMIN 500 MG TABLET PO SCH ×2 (08:37→17:24)
[2019-08-08] MEDS: ENOXAPARIN 40 MG/0.4 ML SQ SCH (08:38)
[2019-08-08 14:01] VITALS: BP 173/89
== END 2019-08-08 19:05 | disposition home or self-care (01) | DRG 885 ==
LOC: ED 19:00 → EDIP 19:46 → 3N 20:45
PROVIDERS: ADMIT Family Medicine; ATTEND Internal Medicine
DX: F31.30 Bipolar disorder, current episode depressed, mild or moderate severity, unspecified (principal); R53.2 Functional quadriplegia; J96.11 Chronic respiratory failure with hypoxia; I69.354 Hemiplegia and hemiparesis following cerebral infarction affecting left non-dominant side; M48.54XA Collapsed vertebra, not elsewhere classified, thoracic region, initial encounter for fracture; M48.56XA Collapsed vertebra, not elsewhere classified, lumbar region, initial encounter for fracture; E78.5 Hyperlipidemia, unspecified; I11.9 Hypertensive heart disease without heart failure; I25.10 Atherosclerotic heart disease of native coronary artery without angina pectoris; Z88.8 Allergy status to other drugs, medicaments and biological substances; E11.9 Type 2 diabetes mellitus without complications; E53.8 Deficiency of other specified B group vitamins; E78.00 Pure hypercholesterolemia, unspecified; E87.6 Hypokalemia; F41.1 Generalized anxiety disorder; G40.909 Epilepsy, unspecified, not intractable, without status epilepticus; I25.2 Old myocardial infarction; K40.90 Unilateral inguinal hernia, without obstruction or gangrene, not specified as recurrent; M48.02 Spinal stenosis, cervical region; Z82.3 Family history of stroke; Z87.891 Personal history of nicotine dependence; Z91.11 Patient's noncompliance with dietary regimen; Z98.84 Bariatric surgery status
CPT/HCPCS: 36415; 71045; 72157; 72158; 76705; 80048; 80307; 81001; 82040; 82140; 82565; 82607; 82962; 83036; 85025; 85610; 87040; 99285; G0378; J1650; 92523-GN; A9575; J2060; J3420

== ENCOUNTER 2019-08-11 08:55 | Emergency (ER) | payer MEDICARE, OTHER ==
[~2019-08-11] VITALS: Ht 177.8 cm; Wt 67.3 kg
[~2019-08-11 08:55] MED LIST changes: +ACET325T26 PO; +CARB-136 EACH EAR; +CYAN-27 PO; +DOCU-131 PO; +GABA-826 PO; +HYDR-3237 PO; +POLY17PO5 PO
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
--- NOTE | 2019-08-11 09:22 | NUR ---
MED REC ATTEMPTED TO BE COMPLETED BY THIS RN, PT UNABLE TO REMEMBER WHEN HE LAST TOOK HIS MEDS.
--- NOTE | 2019-08-11 09:28 | NUR ---
PT TO XRAY.
--- NOTE | 2019-08-11 09:54 | NUR ---
PT BACK FROM XRAY, PT ASLEEP ON GURNEY, VSS, ROOM AIR, NAD.
[2019-08-11 09:55] VITALS: BP 169/91
--- NOTE | 2019-08-11 10:03 | NUR ---
ALL RESULTS BACK AT THIS TIME, CHART UP FOR RECHECK. PER MD, PLAN IS TO D/C.
--- NOTE | 2019-08-11 10:15 | NUR ---
Patient/Caregiver given discharge instructions and they have confirmed that they understand the instructions. Patient ASSISTED INTO WHEELCHAIR WITH STAFF ASSISTANCE. PT ALSO PROVIDED CLEAN CLOTHING.
--- NOTE | 2019-08-11 10:20 | NUR ---
TAXI VOUCHER PROVIDED AT DISCHARGE DESK PER PT REQUEST.
== END 2019-08-11 10:23 | disposition home or self-care (01) ==
LOC: ED 09:48
DX: S63.501A Unspecified sprain of right wrist, initial encounter (principal); S90.01XA Contusion of right ankle, initial encounter; E11.9 Type 2 diabetes mellitus without complications; E78.00 Pure hypercholesterolemia, unspecified; I25.2 Old myocardial infarction; E78.5 Hyperlipidemia, unspecified; I25.10 Atherosclerotic heart disease of native coronary artery without angina pectoris; I10 Essential (primary) hypertension; F32.9 Major depressive disorder, single episode, unspecified; Z72.9 Problem related to lifestyle, unspecified; Z86.73 Personal history of transient ischemic attack (TIA), and cerebral infarction without residual deficits; F17.200 Nicotine dependence, unspecified, uncomplicated; W50.1XXA Accidental kick by another person, initial encounter; Y93.89 Activity, other specified; Y92.410 Unspecified street and highway as the place of occurrence of the external cause; Y99.8 Other external cause status
CPT/HCPCS: 72170; 99283

== ENCOUNTER 2019-08-13 10:17 | Inpatient (IN) | payer MEDICARE ==
[~2019-08-13] VITALS: Ht 180.3 cm; Wt 70.0 kg
--- NOTE | 2019-08-13 11:10 | NUR ---
UPON ARRIVAL PT TALKING NONSTOP WHILE GETTING UNDRESSED AND TRIAGE COMPLETED. PT NOW SLEEPING AND OXYGEN SATURATION DROP NOTED. PLACED ON 2L NC WITH 98 OXYGEN SATURATION
[2019-08-13 11:26] LABS: BASOPHILS # (AUTO) 0.02 x10^3/uL (0-0.1); BASOPHILS % (AUTO) 0 % (0-1); EOSINOPHILS % (AUTO) 5 % (1-7); LYMPHOCYTES # (AUTO) 1.37 x10^3/uL (1-3.4); LYMPHOCYTES % (AUTO) 13 % (22-44); MD NO; MEAN CORPUSCULAR HEMOGLOBIN 32.6 pg (27.5-34.5); MEAN CORPUSCULAR HGB CONC 33.3 g/dL (33.2-36.2); MEAN CORPUSCULAR VOLUME 97.7 fL (81-97); MEAN PLATELET VOLUME 10.2 fL (7.4-10.4); MONOCYTES # (AUTO) 1.01 x10^3/uL (0.2-0.8); MONOCYTES % (AUTO) 9 % (2-9); NEUTROPHILS # (AUTO) 8.04 x10^3/uL (1.8-6.8); NEUTROPHILS % (AUTO) 74 % (42-75); PLATELET COUNT 197 x10^3/uL (130-400); RED BLOOD COUNT 4.67 x10^6/uL (4.38-5.82)
[2019-08-13 11:43] LABS: ALBUMIN 3.5 g/dL (3.4-5.0); ANION GAP 7 mmol/L (5-15); CALCIUM 8.5 mg/dL (8.5-10.1); CHLORIDE 106 mmol/L (98-107)
[2019-08-13 11:49] LABS: ALANINE AMINOTRANSFERASE 17 U/L (12-78); ALKALINE PHOSPHATASE 71 U/L (45-117); BILIRUBIN,TOTAL 0.7 mg/dL (0.2-1.0); CREATININE 0.71 mg/dL (0.7-1.3); TOTAL PROTEIN 6.6 g/dL (6.4-8.2); TROPONIN I < 0.015 ng/mL (0.000-0.045)
--- NOTE | 2019-08-13 11:52 | NUR ---
RIGHT ARM ABRASION WOUND CLEANED WITH SMALL AMOUNT OF DEBRIEDMENT OF SMALL ROCKS. DRESSED WITH A NONSTICK DRESSING AND THEN TO CT
[2019-08-13] MEDS ORDERED: SODIUM CHLORIDE FLUSH 10ML SYR IVF ONE (12:00)
--- NOTE | 2019-08-13 12:10 | NUR ---
PT SLEEPING BUT AROUSABLE. MD INFORMED PT OF CT RESULTS AND INTENT TO ADMIT. PROVIDED BLANKETS.
[2019-08-13] MEDS ORDERED: SODIUM CHLORIDE FLUSH 10ML SYR IVF PRN (13:00)
--- NOTE | 2019-08-13 13:11 | NUR ---
REPORT TO MACY WEEKS
[2019-08-13] MEDS ORDERED: ONDANSETRON ODT 4 MG PO PRN (14:00)
[2019-08-13] MEDS ORDERED: ONDANSETRON 2MG/ML, 2ML IVPush PRN (14:00)
[2019-08-13] MEDS: ENOXAPARIN 40 MG/0.4 ML SQ SCH (14:00)
[2019-08-13 15:17] VITALS: BP 158/84
[2019-08-13] MEDS ORDERED: LORazepam 1MG TABLET PO ONE (16:00)
[2019-08-13] MEDS: metFORMIN 500 MG TABLET PO SCH (17:00)
[2019-08-13 19:51] VITALS: BP 152/79
[2019-08-13] MEDS: SIMVASTATIN 20 MG TABLET PO SCH (20:44)
[2019-08-13] MEDS: DOXEPIN 25 MG CAPSULE PO SCH (20:44)
[2019-08-14 01:18] VITALS: BP 146/74
[2019-08-14 05:04] LABS: BASOPHILS # (AUTO) 0.08 x10^3/uL (0-0.1); BASOPHILS % (AUTO) 1 % (0-1); EOSINOPHILS % (AUTO) 6 % (1-7); LYMPHOCYTES # (AUTO) 1.51 x10^3/uL (1-3.4); LYMPHOCYTES % (AUTO) 15 % (22-44); MD NO; MEAN CORPUSCULAR HGB CONC 33.1 g/dL (33.2-36.2); MEAN CORPUSCULAR VOLUME 96.5 fL (81-97); MEAN PLATELET VOLUME 9.8 fL (7.4-10.4); MONOCYTES # (AUTO) 0.96 x10^3/uL (0.2-0.8); MONOCYTES % (AUTO) 9 % (2-9); NEUTROPHILS # (AUTO) 6.98 x10^3/uL (1.8-6.8); NEUTROPHILS % (AUTO) 69 % (42-75); PLATELET COUNT 186 x10^3/uL (130-400); RED BLOOD COUNT 4.57 x10^6/uL (4.38-5.82); RED CELL DISTRIBUTION WIDTH 12.9 % (9.4-14.8)
[2019-08-14 05:17] LABS: CALCIUM 8.2 mg/dL (8.5-10.1); CHLORIDE 105 mmol/L (98-107)
[2019-08-14 05:21] LABS: ANION GAP 8 mmol/L (5-15); CREATININE 0.67 mg/dL (0.7-1.3)
[2019-08-14 07:19] VITALS: BP 150/77
[2019-08-14] MEDS: CYANOCOBALAMIN 1,000 MCG TABLET PO SCH (09:00)
[2019-08-14] MEDS: metFORMIN 500 MG TABLET PO SCH ×2 (09:14→17:11)
[2019-08-14] MEDS: FLUOXETINE HCL 20 MG CAPSULE PO SCH (09:15)
[2019-08-14] MEDS: LISINOPRIL 20 MG TABLET PO SCH (09:15)
[2019-08-14] MEDS: ASPIRIN 81 MG TABLET EC PO SCH (09:15)
[2019-08-14] MEDS: POTASSIUM CHLORIDE 20 MEQ TAB.ER.PRT PO SCH ×2 (09:15→17:11)
[2019-08-14 12:15] VITALS: BP 137/70
[2019-08-14] MEDS: ENOXAPARIN 40 MG/0.4 ML SQ SCH (14:00)
[2019-08-14] MEDS: GABAPENTIN 100 MG CAPSULE PO PRN ×2 (15:33→21:26)
[2019-08-14 19:03] VITALS: BP 132/61
[2019-08-14] MEDS: SIMVASTATIN 20 MG TABLET PO SCH (21:26)
[2019-08-14] MEDS: DOXEPIN 25 MG CAPSULE PO SCH (21:26)
[2019-08-15 01:05] VITALS: BP 126/59
[2019-08-15 06:54] VITALS: BP 134/80
[2019-08-15] MEDS: metFORMIN 500 MG TABLET PO SCH ×2 (09:04→17:23)
[2019-08-15] MEDS: FLUOXETINE HCL 20 MG CAPSULE PO SCH (09:04)
[2019-08-15] MEDS: LISINOPRIL 20 MG TABLET PO SCH (09:04)
[2019-08-15] MEDS: ASPIRIN 81 MG TABLET EC PO SCH (09:04)
[2019-08-15] MEDS: CYANOCOBALAMIN 1,000 MCG TABLET PO SCH ×2 (09:04→09:15)
[2019-08-15] MEDS: POTASSIUM CHLORIDE 20 MEQ TAB.ER.PRT PO SCH ×2 (09:04→17:23)
[2019-08-15 12:22] VITALS: BP 153/70
[2019-08-15 16:48] LABS: CULTURE INDICATED? YES; MICROSCOPIC INDICATED
[2019-08-15 16:51] LABS: AMPHETAMINE SCREEN, URINE Positive (Negative); BARBITURATE SCREEN, URINE Negative (Negative); BENZODIAZEPINE SCREEN, URINE Negative (Negative); CANNABINOID SCREEN, URINE Negative (Negative); COCAINE SCREEN, URINE Negative (Negative); METHADONE SCREEN, URINE Negative (Negative); OPIATE SCREEN, URINE Negative (Negative)
[2019-08-15] MEDS: ENOXAPARIN 40 MG/0.4 ML SQ SCH (17:23)
[2019-08-15 19:49] VITALS: BP 130/70
[2019-08-15] MEDS: DOXEPIN 25 MG CAPSULE PO SCH (21:00)
[2019-08-15] MEDS: SIMVASTATIN 20 MG TABLET PO SCH (21:01)
[2019-08-16 02:14] VITALS: BP 140/80
[2019-08-16 08:03] VITALS: BP 154/85
[2019-08-16] MEDS: LISINOPRIL 20 MG TABLET PO SCH (08:07)
[2019-08-16] MEDS: ASPIRIN 81 MG TABLET EC PO SCH (08:07)
[2019-08-16] MEDS: metFORMIN 500 MG TABLET PO SCH ×2 (08:08→17:01)
[2019-08-16] MEDS: FLUOXETINE HCL 20 MG CAPSULE PO SCH (08:08)
[2019-08-16] MEDS: CYANOCOBALAMIN 1,000 MCG TABLET PO SCH (08:08)
[2019-08-16 10:44] LABS: BASOPHILS # (AUTO) 0.05 x10^3/uL (0-0.1); BASOPHILS % (AUTO) 1 % (0-1); EOSINOPHILS # (AUTO) 0.32 x10^3/uL (0-0.4); EOSINOPHILS % (AUTO) 4 % (1-7); LYMPHOCYTES # (AUTO) 1.02 x10^3/uL (1-3.4); LYMPHOCYTES % (AUTO) 12 % (22-44); MD NO; MEAN CORPUSCULAR HEMOGLOBIN 32.4 pg (27.5-34.5); MEAN CORPUSCULAR HGB CONC 33.4 g/dL (33.2-36.2); MEAN PLATELET VOLUME 10.3 fL (7.4-10.4); MONOCYTES # (AUTO) 0.96 x10^3/uL (0.2-0.8); MONOCYTES % (AUTO) 11 % (2-9); NEUTROPHILS # (AUTO) 6.48 x10^3/uL (1.8-6.8); NEUTROPHILS % (AUTO) 73 % (42-75); PLATELET COUNT 169 x10^3/uL (130-400); RED BLOOD COUNT 4.46 x10^6/uL (4.38-5.82); RED CELL DISTRIBUTION WIDTH 12.5 % (9.4-14.8)
[2019-08-16 10:56] LABS: ANION GAP 8 mmol/L (5-15); CALCIUM 8.4 mg/dL (8.5-10.1); CHLORIDE 104 mmol/L (98-107); CREATININE 0.75 mg/dL (0.7-1.3)
[2019-08-16 12:16] VITALS: BP 158/74
[2019-08-16] MEDS ORDERED: POTASSIUM CHLORIDE 20 MEQ TAB.ER.PRT PO ONE (15:00)
[2019-08-16] MEDS ORDERED: MAGNESIUM SULFATE PMX 4GM/100M 100 ML IV ONE (15:00)
[2019-08-16] MEDS: ENOXAPARIN 40 MG/0.4 ML SQ SCH (17:01)
[2019-08-16 19:06] VITALS: BP 160/84
[2019-08-16] MEDS: DOXEPIN 25 MG CAPSULE PO SCH (21:00)
[2019-08-16] MEDS: SIMVASTATIN 20 MG TABLET PO SCH (21:00)
[2019-08-17 06:56] VITALS: BP 136/73
[2019-08-17] MEDS: FLUOXETINE HCL 20 MG CAPSULE PO SCH (08:15)
[2019-08-17] MEDS: LISINOPRIL 20 MG TABLET PO SCH (08:15)
[2019-08-17] MEDS: metFORMIN 500 MG TABLET PO SCH ×2 (08:15→17:00)
[2019-08-17] MEDS: ASPIRIN 81 MG TABLET EC PO SCH (08:15)
[2019-08-17] MEDS: CYANOCOBALAMIN 1,000 MCG TABLET PO SCH (08:15)
[2019-08-17 12:13] VITALS: BP 131/78
[2019-08-17] MEDS: ACETAMINOPHEN 325 MG TABLET PO PRN (14:40)
[2019-08-17] MEDS: ENOXAPARIN 40 MG/0.4 ML SQ SCH (17:00)
[2019-08-17 19:32] VITALS: BP 131/68
[2019-08-17] MEDS: DOXEPIN 25 MG CAPSULE PO SCH (20:24)
[2019-08-17] MEDS: SIMVASTATIN 20 MG TABLET PO SCH (20:24)
[2019-08-18 00:20] VITALS: BP 125/75
[2019-08-18 06:58] VITALS: BP 134/78
[2019-08-18] MEDS: metFORMIN 500 MG TABLET PO SCH ×2 (07:38→16:43)
[2019-08-18] MEDS: ASPIRIN 81 MG TABLET EC PO SCH (07:38)
[2019-08-18] MEDS: FLUOXETINE HCL 20 MG CAPSULE PO SCH (07:39)
[2019-08-18] MEDS: LISINOPRIL 20 MG TABLET PO SCH (07:39)
[2019-08-18] MEDS: CYANOCOBALAMIN 1,000 MCG TABLET PO SCH (09:00)
[2019-08-18 12:24] VITALS: BP 117/70
[2019-08-18] MEDS: ENOXAPARIN 40 MG/0.4 ML SQ SCH (16:44)
[2019-08-18] MEDS: ACETAMINOPHEN 325 MG TABLET PO PRN (16:50)
[2019-08-18 17:02] LABS: CREATININE 0.79 mg/dL (0.7-1.3)
[2019-08-18] MEDS: SIMVASTATIN 20 MG TABLET PO SCH (19:58)
[2019-08-18] MEDS: DOXEPIN 25 MG CAPSULE PO SCH (19:58)
[2019-08-18 20:19] VITALS: BP 126/72
[2019-08-19 00:23] VITALS: BP 130/83
[2019-08-19 06:52] VITALS: BP 143/82
[2019-08-19] MEDS: FLUOXETINE HCL 20 MG CAPSULE PO SCH (08:42)
[2019-08-19] MEDS: metFORMIN 500 MG TABLET PO SCH ×2 (08:42→16:37)
[2019-08-19] MEDS: ASPIRIN 81 MG TABLET EC PO SCH (08:43)
[2019-08-19] MEDS: CYANOCOBALAMIN 1,000 MCG TABLET PO SCH (08:43)
[2019-08-19] MEDS: GABAPENTIN 100 MG CAPSULE PO PRN ×2 (08:55→20:24)
[2019-08-19] MEDS: LISINOPRIL 20 MG TABLET PO SCH (08:55)
[2019-08-19 12:23] VITALS: BP 128/83
[2019-08-19] MEDS: ENOXAPARIN 40 MG/0.4 ML SQ SCH (16:37)
[2019-08-19 19:38] VITALS: BP 123/71
[2019-08-19] MEDS: DOXEPIN 25 MG CAPSULE PO SCH (20:24)
[2019-08-19] MEDS: SIMVASTATIN 20 MG TABLET PO SCH (20:24)
[2019-08-20 01:53] VITALS: BP 109/65
[2019-08-20 07:01] VITALS: BP 127/75
[2019-08-20] MEDS: CYANOCOBALAMIN 1,000 MCG TABLET PO SCH (07:44)
[2019-08-20] MEDS: ASPIRIN 81 MG TABLET EC PO SCH (07:44)
[2019-08-20] MEDS: metFORMIN 500 MG TABLET PO SCH ×2 (07:44→15:56)
[2019-08-20] MEDS: LISINOPRIL 20 MG TABLET PO SCH (07:44)
[2019-08-20] MEDS: FLUOXETINE HCL 20 MG CAPSULE PO SCH (07:44)
[2019-08-20] MEDS ORDERED: POLYETHYLENE GLYCOL 17 GM PACKET NG ONE (08:30)
[2019-08-20] MEDS: SENNA/DOCUSATE TABLET PO SCH (08:48)
[2019-08-20] MEDS: BISACODYL 5 MG EC TABLET PO SCH (08:48)
[2019-08-20 12:44] VITALS: BP 127/77
[2019-08-20] MEDS: GABAPENTIN 100 MG CAPSULE PO PRN ×2 (15:56→20:40)
[2019-08-20] MEDS: ACETAMINOPHEN 325 MG TABLET PO PRN ×2 (15:56→20:40)
[2019-08-20] MEDS: ENOXAPARIN 40 MG/0.4 ML SQ SCH (15:57)
[2019-08-20 19:19] VITALS: BP 117/75
[2019-08-20] MEDS: SIMVASTATIN 20 MG TABLET PO SCH (20:40)
[2019-08-20] MEDS: DOXEPIN 25 MG CAPSULE PO SCH (20:40)
[2019-08-21 01:47] VITALS: BP 114/69
[2019-08-21 08:05] VITALS: BP 119/70
[2019-08-21] MEDS: metFORMIN 500 MG TABLET PO SCH ×2 (08:08→17:09)
[2019-08-21] MEDS: ASPIRIN 81 MG TABLET EC PO SCH (08:09)
[2019-08-21] MEDS: GABAPENTIN 100 MG CAPSULE PO PRN (08:09)
[2019-08-21] MEDS: FLUOXETINE HCL 20 MG CAPSULE PO SCH (08:09)
[2019-08-21] MEDS: SENNA/DOCUSATE TABLET PO SCH (08:10)
[2019-08-21] MEDS: BISACODYL 5 MG EC TABLET PO SCH (08:10)
[2019-08-21] MEDS: CYANOCOBALAMIN 1,000 MCG TABLET PO SCH (08:10)
[2019-08-21] MEDS: LISINOPRIL 20 MG TABLET PO SCH (08:10)
[2019-08-21 14:35] VITALS: BP_SYST 113; BP_SYST 130; BP_DIAS 71
[2019-08-21] MEDS: ENOXAPARIN 40 MG/0.4 ML SQ SCH (17:09)
[2019-08-21 18:34] VITALS: BP 123/81
[2019-08-21] MEDS: DOXEPIN 25 MG CAPSULE PO SCH (21:57)
[2019-08-21] MEDS: SIMVASTATIN 20 MG TABLET PO SCH (21:57)
[2019-08-21] MEDS: ACETAMINOPHEN 325 MG TABLET PO PRN (22:00)
[2019-08-22 02:18] VITALS: BP 126/69
[2019-08-22 08:10] VITALS: BP 117/80
[2019-08-22] MEDS: CYANOCOBALAMIN 1,000 MCG TABLET PO SCH (09:00)
[2019-08-22 09:12] LABS: BASOPHILS # (AUTO) 0.02 x10^3/uL (0-0.1); BASOPHILS % (AUTO) 0 % (0-1); EOSINOPHILS # (AUTO) 0.49 x10^3/uL (0-0.4); EOSINOPHILS % (AUTO) 6 % (1-7); LYMPHOCYTES # (AUTO) 1.36 x10^3/uL (1-3.4); LYMPHOCYTES % (AUTO) 17 % (22-44); MD NO; MEAN CORPUSCULAR HEMOGLOBIN 31.6 pg (27.5-34.5); MEAN CORPUSCULAR VOLUME 95.7 fL (81-97); MONOCYTES # (AUTO) 0.72 x10^3/uL (0.2-0.8); MONOCYTES % (AUTO) 9 % (2-9); NEUTROPHILS # (AUTO) 5.63 x10^3/uL (1.8-6.8); NEUTROPHILS % (AUTO) 69 % (42-75); PLATELET COUNT 197 x10^3/uL (130-400); RED BLOOD COUNT 4.73 x10^6/uL (4.38-5.82); RED CELL DISTRIBUTION WIDTH 12.5 % (9.4-14.8)
[2019-08-22 09:18] LABS: ANION GAP 6 mmol/L (5-15); CALCIUM 8.6 mg/dL (8.5-10.1); CHLORIDE 106 mmol/L (98-107); CREATININE 0.75 mg/dL (0.7-1.3)
[2019-08-22] MEDS: LISINOPRIL 20 MG TABLET PO SCH (10:18)
[2019-08-22] MEDS: BISACODYL 5 MG EC TABLET PO SCH (10:18)
[2019-08-22] MEDS: SENNA/DOCUSATE TABLET PO SCH (10:18)
[2019-08-22] MEDS: ASPIRIN 81 MG TABLET EC PO SCH (10:19)
[2019-08-22] MEDS: FLUOXETINE HCL 20 MG CAPSULE PO SCH (10:19)
[2019-08-22] MEDS: metFORMIN 500 MG TABLET PO SCH ×2 (10:19→17:12)
[2019-08-22] MEDS: ACETAMINOPHEN 325 MG TABLET PO PRN ×2 (10:26→15:12)
[2019-08-22 12:40] VITALS: BP 133/76
[2019-08-22] MEDS ORDERED: MAGNESIUM SULFATE PMX 2GM/50ML 50 ML IV ONE (14:30)
[2019-08-22] MEDS: GABAPENTIN 100 MG CAPSULE PO PRN (15:12)
[2019-08-22] MEDS: ENOXAPARIN 40 MG/0.4 ML SQ SCH (17:12)
[2019-08-22 19:01] VITALS: BP 105/70
[2019-08-22] MEDS: DOXEPIN 25 MG CAPSULE PO SCH (20:36)
[2019-08-22] MEDS: SIMVASTATIN 20 MG TABLET PO SCH (20:36)
[2019-08-23 00:25] VITALS: BP 112/71
[2019-08-23] MEDS: ACETAMINOPHEN 325 MG TABLET PO PRN (04:30)
[2019-08-23] MEDS: GABAPENTIN 100 MG CAPSULE PO PRN (04:30)
[2019-08-23 07:13] VITALS: BP 139/79
[2019-08-23] MEDS: BISACODYL 5 MG EC TABLET PO SCH (09:00)
[2019-08-23] MEDS: CYANOCOBALAMIN 1,000 MCG TABLET PO SCH (09:00)
[2019-08-23] MEDS: SENNA/DOCUSATE TABLET PO SCH (10:00)
[2019-08-23] MEDS: FLUOXETINE HCL 20 MG CAPSULE PO SCH (10:00)
[2019-08-23] MEDS: metFORMIN 500 MG TABLET PO SCH ×2 (10:00→17:40)
[2019-08-23] MEDS: ASPIRIN 81 MG TABLET EC PO SCH (10:00)
[2019-08-23] MEDS: LISINOPRIL 20 MG TABLET PO SCH (10:00)
[2019-08-23 13:20] VITALS: BP 131/79
[2019-08-23] MEDS: ENOXAPARIN 40 MG/0.4 ML SQ SCH (17:40)
[2019-08-23 19:47] VITALS: BP 125/80
[2019-08-23] MEDS: SIMVASTATIN 20 MG TABLET PO SCH (21:36)
[2019-08-23] MEDS: DOXEPIN 25 MG CAPSULE PO SCH (21:36)
[2019-08-24 01:18] VITALS: BP 127/65
[2019-08-24] MEDS ORDERED: SODIUM CHLORIDE NASAL SPRAY 45ML BOTTLE NAS PRN (08:30)
[2019-08-24] MEDS: CYANOCOBALAMIN 1,000 MCG TABLET PO SCH (09:00)
[2019-08-24] MEDS: SENNA/DOCUSATE TABLET PO SCH (09:00)
[2019-08-24] MEDS: BISACODYL 5 MG EC TABLET PO SCH (09:00)
[2019-08-24] MEDS: LISINOPRIL 20 MG TABLET PO SCH (09:20)
[2019-08-24] MEDS: FLUOXETINE HCL 20 MG CAPSULE PO SCH (09:20)
[2019-08-24] MEDS: ASPIRIN 81 MG TABLET EC PO SCH (09:20)
[2019-08-24] MEDS: metFORMIN 500 MG TABLET PO SCH ×2 (09:20→17:47)
[2019-08-24 09:56] VITALS: BP 129/77
[2019-08-24 14:19] VITALS: BP 114/73
[2019-08-24] MEDS: NICOTINE 21 MG/24 HR PATCH.TD24 TD SCH (15:44)
[2019-08-24] MEDS: ENOXAPARIN 40 MG/0.4 ML SQ SCH (17:00)
[2019-08-24] MEDS: ACETAMINOPHEN 325 MG TABLET PO PRN (18:19)
[2019-08-24] MEDS: GABAPENTIN 100 MG CAPSULE PO PRN (18:19)
[2019-08-24 18:46] VITALS: BP 150/91
[2019-08-24] MEDS: DOXEPIN 25 MG CAPSULE PO SCH (20:44)
[2019-08-24] MEDS: SIMVASTATIN 20 MG TABLET PO SCH (20:44)
[2019-08-25 00:07] VITALS: BP 110/67
[2019-08-25] MEDS: ASPIRIN 81 MG TABLET EC PO SCH (09:00)
[2019-08-25] MEDS: metFORMIN 500 MG TABLET PO SCH ×2 (09:11→18:30)
[2019-08-25] MEDS: CYANOCOBALAMIN 1,000 MCG TABLET PO SCH (09:11)
[2019-08-25] MEDS: LISINOPRIL 20 MG TABLET PO SCH (09:11)
[2019-08-25] MEDS: BISACODYL 5 MG EC TABLET PO SCH (09:11)
[2019-08-25] MEDS: FLUOXETINE HCL 20 MG CAPSULE PO SCH (09:11)
[2019-08-25] MEDS: SENNA/DOCUSATE TABLET PO SCH (09:11)
[2019-08-25 10:30] VITALS: BP 138/82
[2019-08-25 13:00] VITALS: BP 139/82
[2019-08-25] MEDS: ACETAMINOPHEN 325 MG TABLET PO PRN (14:25)
[2019-08-25] MEDS: GABAPENTIN 100 MG CAPSULE PO PRN ×2 (14:26→22:43)
[2019-08-25] MEDS: NICOTINE 21 MG/24 HR PATCH.TD24 TD SCH ×2 (15:30→18:30)
[2019-08-25] MEDS: ENOXAPARIN 40 MG/0.4 ML SQ SCH (17:00)
[2019-08-25 18:58] VITALS: BP 121/76
[2019-08-25] MEDS: DOXEPIN 25 MG CAPSULE PO SCH (20:34)
[2019-08-25] MEDS: SIMVASTATIN 20 MG TABLET PO SCH (20:34)
[2019-08-26 00:25] VITALS: BP 138/80
[2019-08-26 06:53] VITALS: BP 136/55
[2019-08-26 08:24] LABS: ANION GAP 6 mmol/L (5-15); CALCIUM 8.2 mg/dL (8.5-10.1); CHLORIDE 107 mmol/L (98-107); CREATININE 0.65 mg/dL (0.7-1.3)
[2019-08-26] MEDS: CYANOCOBALAMIN 1,000 MCG TABLET PO SCH (08:56)
[2019-08-26] MEDS: SENNA/DOCUSATE TABLET PO SCH (08:56)
[2019-08-26] MEDS: FLUOXETINE HCL 20 MG CAPSULE PO SCH (08:56)
[2019-08-26] MEDS: ASPIRIN 81 MG TABLET EC PO SCH (08:56)
[2019-08-26] MEDS: metFORMIN 500 MG TABLET PO SCH ×2 (08:56→16:03)
[2019-08-26] MEDS: BISACODYL 5 MG EC TABLET PO SCH (08:56)
[2019-08-26] MEDS: LISINOPRIL 20 MG TABLET PO SCH (08:57)
[2019-08-26] MEDS ORDERED: MAGNESIUM SULFATE 3 GM in SODIUM CHLORIDE 0.9% 100 ML IV ONE (09:30)
[2019-08-26 13:31] VITALS: BP 138/86
[2019-08-26] MEDS: ENOXAPARIN 40 MG/0.4 ML SQ SCH (16:03)
[2019-08-26] MEDS: NICOTINE 21 MG/24 HR PATCH.TD24 TD SCH (16:04)
[2019-08-26 18:43] VITALS: BP 145/88
[2019-08-26] MEDS: SIMVASTATIN 20 MG TABLET PO SCH (20:04)
[2019-08-26] MEDS: DOXEPIN 25 MG CAPSULE PO SCH (20:04)
[2019-08-26] MEDS: GABAPENTIN 100 MG CAPSULE PO PRN (23:50)
[2019-08-27 01:07] VITALS: BP 142/96
[2019-08-27] MEDS: ACETAMINOPHEN 325 MG TABLET PO PRN ×3 (01:16→21:58)
[2019-08-27 07:03] VITALS: BP 144/76
[2019-08-27] MEDS: ASPIRIN 81 MG TABLET EC PO SCH (08:25)
[2019-08-27] MEDS: FLUOXETINE HCL 20 MG CAPSULE PO SCH (08:25)
[2019-08-27] MEDS: SENNA/DOCUSATE TABLET PO SCH ×2 (08:25→08:29)
[2019-08-27] MEDS: metFORMIN 500 MG TABLET PO SCH ×2 (08:25→16:48)
[2019-08-27] MEDS: CYANOCOBALAMIN 1,000 MCG TABLET PO SCH (08:26)
[2019-08-27] MEDS: BISACODYL 5 MG EC TABLET PO SCH (08:27)
[2019-08-27] MEDS: LISINOPRIL 20 MG TABLET PO SCH (08:27)
[2019-08-27] MEDS ORDERED: MAGNESIUM SULFATE PMX 2GM/50ML 50 ML IV ONE (11:00)
[2019-08-27] MEDS: GABAPENTIN 100 MG CAPSULE PO PRN ×2 (12:16→21:01)
[2019-08-27] MEDS: NICOTINE 21 MG/24 HR PATCH.TD24 TD SCH (16:48)
[2019-08-27] MEDS: ENOXAPARIN 40 MG/0.4 ML SQ SCH (16:49)
[2019-08-27 17:46] VITALS: BP 145/89
[2019-08-27 18:55] VITALS: BP 156/97
[2019-08-27] MEDS: DOXEPIN 25 MG CAPSULE PO SCH (21:00)
[2019-08-27] MEDS: SIMVASTATIN 20 MG TABLET PO SCH (21:01)
[2019-08-28 01:17] VITALS: BP 136/88
[2019-08-28 07:30] VITALS: BP 166/80
[2019-08-28] MEDS: ASPIRIN 81 MG TABLET EC PO SCH (09:47)
[2019-08-28] MEDS: FLUOXETINE HCL 20 MG CAPSULE PO SCH (09:48)
[2019-08-28] MEDS: metFORMIN 500 MG TABLET PO SCH ×2 (09:48→16:38)
[2019-08-28] MEDS: LISINOPRIL 20 MG TABLET PO SCH (09:49)
[2019-08-28] MEDS: BISACODYL 5 MG EC TABLET PO SCH (09:54)
[2019-08-28] MEDS: SENNA/DOCUSATE TABLET PO SCH (09:54)
[2019-08-28] MEDS: CYANOCOBALAMIN 1,000 MCG TABLET PO SCH (09:54)
[2019-08-28 16:00] VITALS: BP 138/86
[2019-08-28] MEDS: ENOXAPARIN 40 MG/0.4 ML SQ SCH (16:40)
[2019-08-28] MEDS: NICOTINE 21 MG/24 HR PATCH.TD24 TD SCH (16:44)
[2019-08-28 18:40] VITALS: BP 131/82
[2019-08-28] MEDS: ACETAMINOPHEN 325 MG TABLET PO PRN (19:28)
[2019-08-28] MEDS: DOXEPIN 25 MG CAPSULE PO SCH (19:28)
[2019-08-28] MEDS: SIMVASTATIN 20 MG TABLET PO SCH (19:28)
[2019-08-28] MEDS: GABAPENTIN 100 MG CAPSULE PO PRN (19:28)
[2019-08-29 00:54] VITALS: BP 120/80
[2019-08-29 06:57] VITALS: BP 162/89
[2019-08-29] MEDS: metFORMIN 500 MG TABLET PO SCH (08:06)
[2019-08-29] MEDS: BISACODYL 5 MG EC TABLET PO SCH (08:07)
[2019-08-29] MEDS: CYANOCOBALAMIN 1,000 MCG TABLET PO SCH (08:08)
[2019-08-29] MEDS: FLUOXETINE HCL 20 MG CAPSULE PO SCH (08:08)
[2019-08-29] MEDS: LISINOPRIL 20 MG TABLET PO SCH (08:08)
[2019-08-29] MEDS: SENNA/DOCUSATE TABLET PO SCH (08:08)
[2019-08-29] MEDS: ASPIRIN 81 MG TABLET EC PO SCH (08:08)
[2019-08-29] MEDS: GABAPENTIN 100 MG CAPSULE PO PRN (08:21)
[2019-08-29] MEDS: ACETAMINOPHEN 325 MG TABLET PO PRN (12:02)
[2019-08-29 13:46] VITALS: BP 137/77
== END 2019-08-29 14:11 | disposition left against medical advice (07) | DRG 64 ==
LOC: ED 12:34 → EDIP 12:35 → ED 13:00 → 4WST 13:55
PROVIDERS: ADMIT Internal Medicine; ATTEND Hospitalist
DX: I63.9 Cerebral infarction, unspecified (principal); R53.2 Functional quadriplegia; I69.354 Hemiplegia and hemiparesis following cerebral infarction affecting left non-dominant side; E53.8 Deficiency of other specified B group vitamins; E83.42 Hypomagnesemia; E87.6 Hypokalemia; F15.10 Other stimulant abuse, uncomplicated; F41.1 Generalized anxiety disorder; I10 Essential (primary) hypertension; I25.10 Atherosclerotic heart disease of native coronary artery without angina pectoris; K40.90 Unilateral inguinal hernia, without obstruction or gangrene, not specified as recurrent; R62.7 Adult failure to thrive; W18.30XA Fall on same level, unspecified, initial encounter; Z66 Do not resuscitate; F31.9 Bipolar disorder, unspecified; D72.829 Elevated white blood cell count, unspecified; F17.210 Nicotine dependence, cigarettes, uncomplicated; E11.42 Type 2 diabetes mellitus with diabetic polyneuropathy; I25.2 Old myocardial infarction; Z59.0 Homelessness; Z79.82 Long term (current) use of aspirin; Z79.84 Long term (current) use of oral hypoglycemic drugs; Z79.899 Other long term (current) drug therapy; Z91.14 Patient's other noncompliance with medication regimen; Z90.49 Acquired absence of other specified parts of digestive tract; Z99.3 Dependence on wheelchair; Z98.84 Bariatric surgery status; Z88.8 Allergy status to other drugs, medicaments and biological substances; Z91.018 Allergy to other foods; Z68.21 Body mass index [BMI] 21.0-21.9, adult
CPT/HCPCS: 36415; 70450; 70551; 71045; 80048; 80053; 80307; 81001; 82565; 82962; 83735; 84100; 84145; 84484; 85025; 87086; 93005; G0378; J1650; J3475

== ENCOUNTER 2019-09-27 07:41 | Emergency (ER) | payer MEDICARE ==
[2019-09-27 07:42] VITALS: BP 126/73
--- NOTE | 2019-09-27 07:51 | NUR ---
THIS IS A 59 YO M BIB [facility]. PATIENT REPORTS ROLLING OUT OF HIS BOTTOM BUNK BED THIS MORNING AT APPROXIMATELY 0300. STATES HE WENT BACK TO SLEEP. WOKE UP THIS MORNING WITH A HEADACHE AND CALLED AMBULANCE. [facility] REPORTS FSBS OF 450. HX OF DM, STROKES, AR AND HTN. PATIENT STATES THAT HE HAS NOT TAKEN ANY MEDS IN THE PAST MONTH. ALSO STATES "I LOST MY A MONTH AGO". PATIENT IS RESTING ON GURNEY WITH SIDE RAILS UP X2. CALL LIGHT IN REACH. GIVEN WATER UPON REQUEST. WILL CONTINUE TO MONITOR.
[2019-09-27] MEDS ORDERED: SODIUM CHLORIDE 0.9% 1,000ML IVBOLUS ONE (08:00)
--- NOTE | 2019-09-27 08:12 | NUR ---
PATIENT IN RADIOLOGY
[2019-09-27 08:15] LABS: PH, VENOUS 7.381 pH (7.320-7.420)
[2019-09-27 08:16] LABS: BASOPHILS # (AUTO) 0.02 x10^3/uL (0-0.1); BASOPHILS % (AUTO) 0 % (0-1); EOSINOPHILS # (AUTO) 0.43 x10^3/uL (0-0.4); EOSINOPHILS % (AUTO) 5 % (1-7); LYMPHOCYTES # (AUTO) 1.14 x10^3/uL (1-3.4); LYMPHOCYTES % (AUTO) 12 % (22-44); MD NO; MEAN CORPUSCULAR HEMOGLOBIN 31.1 pg (27.5-34.5); MEAN CORPUSCULAR HGB CONC 33.2 g/dL (33.2-36.2); MEAN CORPUSCULAR VOLUME 93.7 fL (81-97); MEAN PLATELET VOLUME 9.3 fL (7.4-10.4); MONOCYTES # (AUTO) 0.69 x10^3/uL (0.2-0.8); MONOCYTES % (AUTO) 7 % (2-9); NEUTROPHILS # (AUTO) 7.08 x10^3/uL (1.8-6.8); NEUTROPHILS % (AUTO) 76 % (42-75); PLATELET COUNT 209 x10^3/uL (130-400); RED BLOOD COUNT 4.72 x10^6/uL (4.38-5.82); RED CELL DISTRIBUTION WIDTH 13.2 % (9.4-14.8)
[2019-09-27 08:17] LABS: FIO2 ROOM AIR %
[2019-09-27 08:28] LABS: ALANINE AMINOTRANSFERASE 15 U/L (12-78); ALBUMIN 2.9 g/dL (3.4-5.0); ANION GAP 7 mmol/L (5-15); CALCIUM 8.6 mg/dL (8.5-10.1); CHLORIDE 104 mmol/L (98-107)
[2019-09-27 08:30] LABS: ALKALINE PHOSPHATASE 113 U/L (45-117); BILIRUBIN,TOTAL 0.5 mg/dL (0.2-1.0); TOTAL PROTEIN 6.3 g/dL (6.4-8.2)
--- NOTE | 2019-09-27 08:45 | NUR ---
PATIENT RESTING ON GURNEY WITH SIDE RAILS UP X2. DENIES FURTHER NEEDS AT THIS TIME.
[2019-09-27 09:27] LABS: ACETONE, SERUM Negative (Negative)
--- NOTE | 2019-09-27 09:30 | NUR ---
ANSWERED CALL LIGHT. PT NOTIFIED THIS RN THAT HE HAS A SMALL WOUND ON HIS LEFT ARM THAT IS DRAINING PUS WHEN MANUALLY EXPRESSED, PER PATIENT. NOTIFIED TON HACKETT.
--- NOTE | 2019-09-27 10:15 | NUR ---
Patient given discharge instructions and they have confirmed that they understand the instructions. Patient wheeled out in wheelchair.
== END 2019-09-27 10:17 | disposition home or self-care (01) ==
LOC: ED 10:10
DX: S32.009A Unspecified fracture of unspecified lumbar vertebra, initial encounter for closed fracture (principal); S22.009A Unspecified fracture of unspecified thoracic vertebra, initial encounter for closed fracture; S16.1XXA Strain of muscle, fascia and tendon at neck level, initial encounter; L03.113 Cellulitis of right upper limb; L03.211 Cellulitis of face; E11.65 Type 2 diabetes mellitus with hyperglycemia; I10 Essential (primary) hypertension; E78.5 Hyperlipidemia, unspecified; I25.10 Atherosclerotic heart disease of native coronary artery without angina pectoris; I25.2 Old myocardial infarction; F17.200 Nicotine dependence, unspecified, uncomplicated; Z86.73 Personal history of transient ischemic attack (TIA), and cerebral infarction without residual deficits; W06.XXXA Fall from bed, initial encounter; Y93.89 Activity, other specified; Y92.89 Other specified places as the place of occurrence of the external cause; Y99.8 Other external cause status
CPT/HCPCS: 36415; 70450; 72125; 72128; 72131; 80053; 82010; 82803; 83690; 85025; 96360; 96361; 99284; J7030

== ENCOUNTER 2019-10-06 14:48 | Emergency (ER) | payer MEDICARE ==
--- NOTE | 2019-10-06 16:45 | NUR ---
RELIEF RN: PT TO ROOM FROM LOBBY VIA PERSONAL W/C. PT ABLE TO STAND, TRANSFER SELF TO W/C. PT GIVEN URINAL TO USE.
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
--- NOTE | 2019-10-06 16:51 | NUR ---
PT CURRENTLY DENIES BEING ON MEDS. ABLE TO LIST MEDS "SUPPOSE TO BE ON"
[2019-10-06] MEDS ORDERED: FAMOTIDINE 20 MG TABLET PO ONE (17:00)
[2019-10-06] MEDS ORDERED: FAMOTIDINE 20 MG TABLET ONE (17:27)
--- NOTE | 2019-10-06 17:33 | NUR ---
ATARAX, PEPCID AND PREDNISONE GIVEN PER EMAR
[2019-10-06 18:45] VITALS: BP 138/71
[2019-10-06] MEDS ORDERED: CEPH-376 PO (18:47)
[2019-10-06] MEDS ORDERED: NAPR-868 PO (18:47)
== END 2019-10-06 18:49 | disposition home or self-care (01) ==
LOC: ED 16:56
DX: L50.9 Urticaria, unspecified (principal); I10 Essential (primary) hypertension; E11.9 Type 2 diabetes mellitus without complications; I25.10 Atherosclerotic heart disease of native coronary artery without angina pectoris; E78.5 Hyperlipidemia, unspecified; E78.00 Pure hypercholesterolemia, unspecified; F17.200 Nicotine dependence, unspecified, uncomplicated; Z72.89 Other problems related to lifestyle; Z86.73 Personal history of transient ischemic attack (TIA), and cerebral infarction without residual deficits
CPT/HCPCS: 99284; J7512; Q0177

== ENCOUNTER 2019-10-20 02:17 | Emergency (ER) | payer MEDICARE ==
[~2019-10-20] VITALS: Ht 175.3 cm; Wt 67.8 kg
[~2019-10-20 02:17] MED LIST changes: +CEPH-376 PO; +NAPR-868 PO
[2019-10-20 03:32] VITALS: BP 160/84
== END 2019-10-20 03:35 | disposition home or self-care (01) ==
LOC: ED 02:28
DX: L50.0 Allergic urticaria (principal); E11.9 Type 2 diabetes mellitus without complications; I10 Essential (primary) hypertension; I25.2 Old myocardial infarction; E78.5 Hyperlipidemia, unspecified; I25.10 Atherosclerotic heart disease of native coronary artery without angina pectoris; Z72.89 Other problems related to lifestyle; Z86.73 Personal history of transient ischemic attack (TIA), and cerebral infarction without residual deficits; Z59.0 Homelessness
CPT/HCPCS: 99283; J7512

== ENCOUNTER 2019-10-31 03:43 | Emergency (ER) | payer MEDICARE ==
[~2019-10-31] VITALS: Ht 167.6 cm; Wt 64.0 kg
--- NOTE | 2019-10-31 04:22 | NUR ---
Note tashia in EDM - 10/31/19 at 0438 by MERLENE PT ACTIVELY VOMITING SMALL AMT. BROWN IN COLOR. MEDICATED PER [place].
[2019-10-31] MEDS ORDERED: PANT20TA2 PO (04:31)
== END 2019-10-31 04:40 | disposition home or self-care (01) ==
LOC: ED 04:00
DX: B86 Scabies (principal); F10.10 Alcohol abuse, uncomplicated; I10 Essential (primary) hypertension; E11.9 Type 2 diabetes mellitus without complications; E78.00 Pure hypercholesterolemia, unspecified; F17.200 Nicotine dependence, unspecified, uncomplicated; Z91.14 Patient's other noncompliance with medication regimen; Z72.9 Problem related to lifestyle, unspecified; Z75.9 Unspecified problem related to medical facilities and other health care; Z86.73 Personal history of transient ischemic attack (TIA), and cerebral infarction without residual deficits; Z59.0 Homelessness; Y90.9 Presence of alcohol in blood, level not specified
CPT/HCPCS: 99283

== ENCOUNTER 2019-11-02 22:39 | Emergency (ER) | payer MEDICARE ==
[~2019-11-02] VITALS: Ht 170.2 cm; Wt 67.1 kg
[~2019-11-02 22:39] MED LIST changes: +PANT20TA2 PO
[2019-11-02] MEDS ORDERED: SODIUM CHLORIDE 0.9% 1,000ML IVBOLUS ONE (23:00)
[2019-11-02] MEDS ORDERED: PERMETHRIN CRM 5%, 60GM TP SCH (23:00)
[2019-11-02 23:19] LABS: BASOPHILS # (AUTO) 0.07 x10^3/uL (0-0.1); BASOPHILS % (AUTO) 1 % (0-1); EOSINOPHILS # (AUTO) 1.01 x10^3/uL (0-0.4); EOSINOPHILS % (AUTO) 9 % (1-7); LYMPHOCYTES % (AUTO) 17 % (22-44); MD NO; MEAN CORPUSCULAR HGB CONC 33.6 g/dL (33.2-36.2); MEAN CORPUSCULAR VOLUME 92.2 fL (81-97); MEAN PLATELET VOLUME 9.7 fL (7.4-10.4); MONOCYTES # (AUTO) 0.96 x10^3/uL (0.2-0.8); MONOCYTES % (AUTO) 9 % (2-9); NEUTROPHILS # (AUTO) 6.88 x10^3/uL (1.8-6.8); NEUTROPHILS % (AUTO) 64 % (42-75); PLATELET COUNT 182 x10^3/uL (130-400); RED BLOOD COUNT 4.95 x10^6/uL (4.38-5.82); RED CELL DISTRIBUTION WIDTH 13.6 % (9.4-14.8)
[2019-11-02 23:27] LABS: ALBUMIN 2.9 g/dL (3.4-5.0); ANION GAP 8 mmol/L (5-15); CALCIUM 8.1 mg/dL (8.5-10.1); CHLORIDE 103 mmol/L (98-107); SALICYLATE LEVEL 1.8 mg/dL (2.8-20.0)
--- NOTE | 2019-11-02 23:54 | NUR ---
PT DECLINING TO ATTEMPT FOR UA AT THIS TIME.
--- NOTE | 2019-11-03 01:06 | NUR ---
PT GIVEN WATER AND BLANKETS PER REQUEST. PT STILL HAS NOT PROVIDED URINE SAMPLE.
--- NOTE | 2019-11-03 01:27 | NUR ---
UA OBTAINED AND TUBED TO LAB. PT COVERED WITH MULTIPLE BLANKETS PER REQUEST. PT DECLINING SHOWER AND CREAM AT THIS TIME "ITS NOT SCABIES IT BED BUGS". NO BED BUGS FOUND. PT WAS INFORMED OF PHYSICIAN EVALUATION AND PT STILL DECLINES.
--- NOTE | 2019-11-03 01:39 | NUR ---
REQ FOR PERMETHRIN CREAM TUBED TO PHARM
[2019-11-03 01:58] LABS: AMPHETAMINE SCREEN, URINE Negative (Negative); BARBITURATE SCREEN, URINE Negative (Negative); BENZODIAZEPINE SCREEN, URINE Negative (Negative); CANNABINOID SCREEN, URINE Negative (Negative); COCAINE SCREEN, URINE Negative (Negative); METHADONE SCREEN, URINE Negative (Negative); OPIATE SCREEN, URINE Negative (Negative)
--- NOTE | 2019-11-03 02:02 | NUR ---
REQ FO METFORMIN TUBED TO PHARM
[2019-11-03] MEDS ORDERED: metFORMIN 500 MG TABLET ONE (03:29)
[2019-11-03] MEDS ORDERED: PERMETHRIN CRM 5%, 60GM ONE (03:30)
--- NOTE | 2019-11-03 03:38 | NUR ---
PT MEDICATED NOW PER MD ORDER. POC DISCUSSED. PT WAS INFORMED WE MUST TREAT HIS SCABIES AND APPLY THE PERMETHRIN CREAM. PT ULTIMATELY AGREEABLE. PT DENIES FURTHER NEEDS AT THIS TIME.
--- NOTE | 2019-11-03 04:32 | NUR ---
PT TO SHOWER AT THIS TIME
--- NOTE | 2019-11-03 04:57 | NUR ---
PT SHOWERED BY [employer]. PERMETHRIN CREAM APPLIED GLOBALLY. PT PLACED IN CLEAN ROOM AND FRESH BLANKETS PROVIDED.
--- NOTE | 2019-11-03 05:13 | NUR ---
REPORT GIVEN TO TELEPSYCH DOCTOR
--- NOTE | 2019-11-03 05:18 | NUR ---
PT BELONGINGS PLACED IN DECON ROOM
--- NOTE | 2019-11-03 05:38 | NUR ---
PER TELEPSYCH DOCTOR PT TO BE DC
--- NOTE | 2019-11-03 05:41 | NUR ---
PT GIVEN SET OF CLEAN CLOTHES FROM [facility]
--- NOTE | 2019-11-03 06:10 | NUR ---
PT GIVEN CAB TAXI VOUCHER PER REQUEST.
[2019-11-03 06:11] VITALS: BP 119/84
[2019-11-03] MEDS ORDERED: metFORMIN 500 MG TABLET PO SCH (08:00)
== END 2019-11-03 06:14 | disposition home or self-care (01) ==
LOC: ED 23:01
DX: R45.851 Suicidal ideations (principal); E11.65 Type 2 diabetes mellitus with hyperglycemia; B86 Scabies; Z59.0 Homelessness; I10 Essential (primary) hypertension; I25.10 Atherosclerotic heart disease of native coronary artery without angina pectoris; E78.00 Pure hypercholesterolemia, unspecified; E78.5 Hyperlipidemia, unspecified; I25.2 Old myocardial infarction; F17.200 Nicotine dependence, unspecified, uncomplicated; Z86.73 Personal history of transient ischemic attack (TIA), and cerebral infarction without residual deficits
CPT/HCPCS: 36415; 80048; 80307; 82040; 85025; 96360; 96361; 99284; J7030

== ENCOUNTER 2019-11-16 11:29 | Emergency (ER) | payer MEDICARE ==
[~2019-11-16] VITALS: Ht 175.3 cm; Wt 68.0 kg
--- NOTE | 2019-11-16 11:44 | NUR ---
BIOLOGY SPECIALIST: 2 KNIVES, FORK, A TORCH, AT SECURITY, PT CAN OBTAIN AFTER DC.
[2019-11-16 11:56] VITALS: BP 134/81
--- NOTE | 2019-11-16 12:03 | NUR ---
DAPHNEY MORTON FROM [facility] FOR SCABIES TREATMENT. PT SHOWERED AND CREAM APPLIED. PT IN ROOM. FRESH CLOTHES AVAILABLE FOR DC AND ALL CLOTHES PACKED UP AND SEALED. CALL LIGHT IN REACH. FALL PRECAUTIONS IN PLACE. AWAITING ORDERS AT THIS TIME.
== END 2019-11-16 13:28 | disposition home or self-care (01) ==
LOC: ED 13:22
DX: B86 Scabies (principal)
CPT/HCPCS: 99283

== ENCOUNTER 2019-11-16 13:36 | Emergency (ER) | payer MEDICARE ==
[~2019-11-16] VITALS: Ht 177.8 cm; Wt 63.0 kg
[2019-11-16 14:04] VITALS: BP 128/71
--- NOTE | 2019-11-16 14:20 | NUR ---
PT'S PROPERTY: TWO KNIVES,A FORK AND A TORCH GIVEN TO SECURITY FOR SAFE KEEPING.
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
--- NOTE | 2019-11-16 14:28 | NUR ---
PT REFUSES PHYSICAL ASSESSMENT AT THIS TIME.
[2019-11-16 15:11] LABS: BASOPHILS # (AUTO) 0.04 x10^3/uL (0-0.1); BASOPHILS % (AUTO) 1 % (0-1); EOSINOPHILS # (AUTO) 0.24 x10^3/uL (0-0.4); EOSINOPHILS % (AUTO) 4 % (1-7); LYMPHOCYTES # (AUTO) 1.37 x10^3/uL (1-3.4); LYMPHOCYTES % (AUTO) 20 % (22-44); MD NO; MEAN CORPUSCULAR HGB CONC 33.6 g/dL (33.2-36.2); MEAN CORPUSCULAR VOLUME 92.4 fL (81-97); MEAN PLATELET VOLUME 9.8 fL (7.4-10.4); MONOCYTES # (AUTO) 1.01 x10^3/uL (0.2-0.8); MONOCYTES % (AUTO) 15 % (2-9); NEUTROPHILS # (AUTO) 4.24 x10^3/uL (1.8-6.8); NEUTROPHILS % (AUTO) 62 % (42-75); PLATELET COUNT 194 x10^3/uL (130-400); RED CELL DISTRIBUTION WIDTH 13.4 % (9.4-14.8)
[2019-11-16 15:22] LABS: ALANINE AMINOTRANSFERASE 13 U/L (12-78); ALBUMIN 2.7 g/dL (3.4-5.0); ANION GAP 5 mmol/L (5-15); CALCIUM 8.6 mg/dL (8.5-10.1); CHLORIDE 102 mmol/L (98-107); CREATININE 1.08 mg/dL (0.7-1.3)
[2019-11-16 15:24] LABS: ALKALINE PHOSPHATASE 106 U/L (45-117); BILIRUBIN,TOTAL 0.4 mg/dL (0.2-1.0); SALICYLATE LEVEL < 1.7 mg/dL (2.8-20.0); TOTAL PROTEIN 6.5 g/dL (6.4-8.2)
--- NOTE | 2019-11-16 15:42 | NUR ---
PT CONTINUES TO SLEEP ON [facility]. ALL SAFETY MEASURES OBTAINED. NO NEEDS REQUESTED AT THIS TIME.
--- NOTE | 2019-11-16 16:20 | NUR ---
UA COLLECTED. UA TO LAB. PT RESTING ON GURBHUMI. NADN. NO NEEDS REQUESTED AT THIS TIME. ALL SAFETY MEASURES OBTAINED.
[2019-11-16 16:42] LABS: AMPHETAMINE SCREEN, URINE Negative (Negative); BARBITURATE SCREEN, URINE Negative (Negative); BENZODIAZEPINE SCREEN, URINE Negative (Negative); CANNABINOID SCREEN, URINE Negative (Negative); COCAINE SCREEN, URINE Negative (Negative); METHADONE SCREEN, URINE Negative (Negative); OPIATE SCREEN, URINE Negative (Negative)
--- NOTE | 2019-11-16 16:46 | NUR ---
PT GIVEN WARM BLANKET. PT STATES "I HAVEN'T TAKEN ANY MEDICATIONS FOR 8 MONTHS." NADN. NO NEEDS REQUESTED AT THIS TIME
--- NOTE | 2019-11-16 18:06 | NUR ---
YVES JORGE DELIVERED AND EXPLAINED POC TO PT. PT VERBALIZED UNDERSTANDING.
--- NOTE | 2019-11-16 18:52 | NUR ---
pt rude while staff is helping get him dressed.
--- NOTE | 2019-11-16 18:56 | NUR ---
Patient/Caregiver given discharge instructions and they have confirmed that they understand the instructions. Patient GIVEN NEW CLOTHES. DRESSED AND IN WHEELCHAIR. PT TOOK ALL PERSONAL BELONGINGS. PT GIVEN CAB VOUCHER.
== END 2019-11-16 18:59 | disposition home or self-care (01) ==
LOC: ED 14:31
DX: F31.32 Bipolar disorder, current episode depressed, moderate (principal); E11.65 Type 2 diabetes mellitus with hyperglycemia; Z72.9 Problem related to lifestyle, unspecified; I10 Essential (primary) hypertension; E11.9 Type 2 diabetes mellitus without complications; E78.5 Hyperlipidemia, unspecified; E78.00 Pure hypercholesterolemia, unspecified; I25.10 Atherosclerotic heart disease of native coronary artery without angina pectoris; I25.2 Old myocardial infarction; F17.200 Nicotine dependence, unspecified, uncomplicated; Z86.73 Personal history of transient ischemic attack (TIA), and cerebral infarction without residual deficits; Z90.89 Acquired absence of other organs
CPT/HCPCS: 36415; 80053; 80307; 85025; 99283

== ENCOUNTER 2019-11-21 22:12 | Emergency (ER) | payer MEDICARE ==
[~2019-11-21 22:12] MED LIST changes: +FLUO20CA23 PO; -FLUO20CA8 PO; +SIMV20TA19 PO; -SIMV20TA3 PO
[2019-11-21 22:45] LABS: BASOPHILS # (AUTO) 0.01 x10^3/uL (0-0.1); BASOPHILS % (AUTO) 0 % (0-1); EOSINOPHILS % (AUTO) 3 % (1-7); LYMPHOCYTES # (AUTO) 2.11 x10^3/uL (1-3.4); LYMPHOCYTES % (AUTO) 18 % (22-44); MD NO; MEAN CORPUSCULAR HEMOGLOBIN 30.8 pg (27.5-34.5); MEAN CORPUSCULAR HGB CONC 33.7 g/dL (33.2-36.2); MEAN CORPUSCULAR VOLUME 91.3 fL (81-97); MEAN PLATELET VOLUME 9.5 fL (7.4-10.4); MONOCYTES # (AUTO) 0.87 x10^3/uL (0.2-0.8); MONOCYTES % (AUTO) 7 % (2-9); NEUTROPHILS # (AUTO) 8.69 x10^3/uL (1.8-6.8); NEUTROPHILS % (AUTO) 73 % (42-75); PLATELET COUNT 254 x10^3/uL (130-400); RED BLOOD COUNT 4.94 x10^6/uL (4.38-5.82); RED CELL DISTRIBUTION WIDTH 13.5 % (9.4-14.8)
[2019-11-21 22:52] LABS: ALANINE AMINOTRANSFERASE 16 U/L (12-78); ALBUMIN 3.4 g/dL (3.4-5.0); ANION GAP 7 mmol/L (5-15); CALCIUM 9.1 mg/dL (8.5-10.1); CHLORIDE 101 mmol/L (98-107); CREATININE 1.37 mg/dL (0.7-1.3)
[2019-11-21 22:54] LABS: ALKALINE PHOSPHATASE 105 U/L (45-117); BILIRUBIN,TOTAL 0.8 mg/dL (0.2-1.0); TOTAL PROTEIN 7.5 g/dL (6.4-8.2)
[2019-11-22 01:47] LABS: AMPHETAMINE SCREEN, URINE Positive (Negative); BARBITURATE SCREEN, URINE Negative (Negative); BENZODIAZEPINE SCREEN, URINE Negative (Negative); CANNABINOID SCREEN, URINE Negative (Negative); COCAINE SCREEN, URINE Negative (Negative); METHADONE SCREEN, URINE Negative (Negative); OPIATE SCREEN, URINE Negative (Negative)
--- NOTE | 2019-11-22 05:02 | NUR ---
pt states his brother said he would be following the ambulance to the hospital, pt brother not present. Pt unable to provide families phone number and is unable to get into residence without castro.
--- NOTE | 2019-11-22 05:37 | NUR ---
Pt resting at this time.
--- NOTE | 2019-11-22 07:00 | NUR ---
REPORT RECIEVED FROM ZACHARIAH WEEKS
--- NOTE | 2019-11-22 07:14 | NUR ---
SNACKS PROVIDED, PT IRRITABLE BUT COOPERATIVE. RESTING IN BED.
[2019-11-22 07:19] VITALS: BP 113/60
--- NOTE | 2019-11-22 07:24 | NUR ---
SPOKE WITH SECURITY Addendum: 11/22/19 at 0824 by [email or web address] NO BELONINGS IN SECURITY.
--- NOTE | 2019-11-22 07:52 | NUR ---
WHEELCHAIR AT BEDSIDE. CLOTHES PROVIDED. PT FRUSTRATED WITH DC ORDERS. SPECIAL EDUCATION PROFESSIONAL AT BEDSIDE TO DISCUSS POC.
--- NOTE | 2019-11-22 08:24 | NUR ---
ASSISTANCE PROVIDED GETTING DRESSING AND SEATED IN WHEELCHAIR DISCHARGE INSTRUCTIONS REVIEWED.
--- NOTE | 2019-11-22 08:40 | NUR ---
PT REFUSED TO LEAVE, POKE IN AWARE, SECURITY NOTIFIED.
== END 2019-11-22 08:53 | disposition home or self-care (01) ==
LOC: ED 11-22 02:22
DX: F15.920 Other stimulant use, unspecified with intoxication, uncomplicated (principal); Z72.9 Problem related to lifestyle, unspecified; I10 Essential (primary) hypertension; Z86.73 Personal history of transient ischemic attack (TIA), and cerebral infarction without residual deficits; E78.5 Hyperlipidemia, unspecified; E78.00 Pure hypercholesterolemia, unspecified; I25.2 Old myocardial infarction; F17.200 Nicotine dependence, unspecified, uncomplicated; Z90.89 Acquired absence of other organs
CPT/HCPCS: 36415; 80053; 80307; 85025; 99283

== ENCOUNTER 2019-11-24 09:27 | Emergency (ER) | payer MEDICARE ==
[~2019-11-24] VITALS: Ht 175.3 cm; Wt 63.0 kg
[2019-11-24 10:03] VITALS: BP 142/68
--- NOTE | 2019-11-24 10:31 | NUR ---
PT UNCOOPERATIVE. AGITATED EASILY. VERBALLY DEMANDING AND AGGRESSIVE.
[2019-11-24 10:47] LABS: BASOPHILS # (AUTO) 0.04 x10^3/uL (0-0.1); BASOPHILS % (AUTO) 1 % (0-1); EOSINOPHILS # (AUTO) 0.31 x10^3/uL (0-0.4); EOSINOPHILS % (AUTO) 4 % (1-7); LYMPHOCYTES # (AUTO) 1.14 x10^3/uL (1-3.4); LYMPHOCYTES % (AUTO) 14 % (22-44); MD NO; MEAN CORPUSCULAR HEMOGLOBIN 31.2 pg (27.5-34.5); MEAN CORPUSCULAR HGB CONC 33.8 g/dL (33.2-36.2); MEAN CORPUSCULAR VOLUME 92.3 fL (81-97); MEAN PLATELET VOLUME 9.7 fL (7.4-10.4); MONOCYTES # (AUTO) 0.75 x10^3/uL (0.2-0.8); MONOCYTES % (AUTO) 9 % (2-9); NEUTROPHILS # (AUTO) 6.02 x10^3/uL (1.8-6.8); NEUTROPHILS % (AUTO) 73 % (42-75); PLATELET COUNT 236 x10^3/uL (130-400); RED CELL DISTRIBUTION WIDTH 13.7 % (9.4-14.8)
[2019-11-24 10:51] LABS: ALBUMIN 3.3 g/dL (3.4-5.0); ANION GAP 7 mmol/L (5-15); CALCIUM 9.1 mg/dL (8.5-10.1); CHLORIDE 102 mmol/L (98-107); CREATININE 0.99 mg/dL (0.7-1.3)
[2019-11-24 10:55] LABS: SALICYLATE LEVEL < 1.7 mg/dL (2.8-20.0)
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
== END 2019-11-24 12:05 | disposition home or self-care (01) ==
LOC: ED 11:59
DX: F32.9 Major depressive disorder, single episode, unspecified (principal); F19.20 Other psychoactive substance dependence, uncomplicated; I25.10 Atherosclerotic heart disease of native coronary artery without angina pectoris; I10 Essential (primary) hypertension; E11.65 Type 2 diabetes mellitus with hyperglycemia; I25.2 Old myocardial infarction; E78.5 Hyperlipidemia, unspecified; E78.00 Pure hypercholesterolemia, unspecified; E87.6 Hypokalemia; F17.200 Nicotine dependence, unspecified, uncomplicated; Z90.89 Acquired absence of other organs; Z86.73 Personal history of transient ischemic attack (TIA), and cerebral infarction without residual deficits
CPT/HCPCS: 36415; 70450; 72125; 80048; 80307; 82040; 85025; 99284

== ENCOUNTER 2019-11-28 13:29 | Emergency (ER) | payer MEDICARE ==
[~2019-11-28] VITALS: Ht 165.1 cm; Wt 60.0 kg
--- NOTE | 2019-11-28 13:39 | NUR ---
Katie lao in [facility] - 11/28/19 at 1353 by FELIPE NO ANSWER FROM [facility] X1
[2019-11-28 13:59] VITALS: BP 134/84
--- NOTE | 2019-11-28 14:00 | NUR ---
BELONGINGS SECURED AND PLACED IN LOCKER. PT IN ROOM WITH ALL SUPPLIES SECURED BEHIND PULL DOWN DOORS.
--- NOTE | 2019-11-28 14:20 | NUR ---
PT EDUCATED ON NEED FOR URINE SAMPLE. VERBALIZES UNDERSTANDING. SITTER REMAINS IN DIRECT LINE OF SIGHT.
[2019-11-28 14:22] LABS: ALBUMIN 2.9 g/dL (3.4-5.0); ANION GAP 6 mmol/L (5-15); CALCIUM 8.3 mg/dL (8.5-10.1); CHLORIDE 105 mmol/L (98-107); CREATININE 0.78 mg/dL (0.7-1.3)
[2019-11-28 14:24] LABS: BASOPHILS # (AUTO) 0.05 x10^3/uL (0-0.1); BASOPHILS % (AUTO) 1 % (0-1); EOSINOPHILS # (AUTO) 0.33 x10^3/uL (0-0.4); EOSINOPHILS % (AUTO) 4 % (1-7); LYMPHOCYTES # (AUTO) 1.64 x10^3/uL (1-3.4); LYMPHOCYTES % (AUTO) 21 % (22-44); MD NO; MEAN CORPUSCULAR VOLUME 91.2 fL (81-97); MEAN PLATELET VOLUME 9.9 fL (7.4-10.4); MONOCYTES % (AUTO) 8 % (2-9); NEUTROPHILS # (AUTO) 5.38 x10^3/uL (1.8-6.8); NEUTROPHILS % (AUTO) 67 % (42-75); PLATELET COUNT 211 x10^3/uL (130-400); RED BLOOD COUNT 4.59 x10^6/uL (4.38-5.82); RED CELL DISTRIBUTION WIDTH 13.3 % (9.4-14.8); SALICYLATE LEVEL < 1.7 mg/dL (2.8-20.0)
[2019-11-28] MEDS ORDERED: METF500T17 PO (14:43)
[2019-11-28] MEDS ORDERED: LISI2.5T PO (14:43)
--- NOTE | 2019-11-28 15:34 | NUR ---
PT SLEEPING. PT IN DIRECT VIEW OF SITTER
--- NOTE | 2019-11-28 17:00 | NUR ---
PSYCH NURSE WOKE PT UP AND INTERVIEWED HIM. PROVIDED DINNER TRAY
--- NOTE | 2019-11-28 18:26 | NUR ---
PT SLEEPING. REMAINS IN DIRECT VIEW OF SITTER.
--- NOTE | 2019-11-28 18:42 | NUR ---
RAYNA RN: packet faxed to [id number], RBSofiya, MALLIKA, JANES, Yajaira [facility]
[2019-11-28 18:56] LABS: AMPHETAMINE SCREEN, URINE Negative (Negative); BARBITURATE SCREEN, URINE Negative (Negative); BENZODIAZEPINE SCREEN, URINE Negative (Negative); CANNABINOID SCREEN, URINE Negative (Negative); COCAINE SCREEN, URINE Negative (Negative); METHADONE SCREEN, URINE Negative (Negative); OPIATE SCREEN, URINE Negative (Negative)
--- NOTE | 2019-11-28 18:57 | NUR ---
Pt bedside report from Lolis rn. This rn to assume care of pt. Pt sleeping comfortably on gurdodge. Rr even and unlabored. Roller doors in place, sitter in hallway.
--- NOTE | 2019-11-28 19:07 | NUR ---
[facility] accepting doctor of Evonne powell. This rn to give report to RB rn.
--- NOTE | 2019-11-28 19:10 | NUR ---
Report given to Ej garcia at [facility].
[2019-11-28] MEDS ORDERED: QUETIAPINE 100MG TABLET PO SCH (21:00)
--- NOTE | 2019-11-28 21:00 | NUR ---
Pt sleeping comfortably on gurney. Rr even and unlabored. Nadn.
[2019-11-28] MEDS ORDERED: QUETIAPINE 100MG TABLET ONE (21:01)
--- NOTE | 2019-11-28 21:28 | NUR ---
REMSA TO [facility] @ [id number].
--- NOTE | 2019-11-28 21:28 | NUR ---
PATIENT BEING TRANSPORTED TO [facility].
== END 2019-11-28 22:13 ==
LOC: ED 14:11
DX: R45.851 Suicidal ideations (principal); E78.00 Pure hypercholesterolemia, unspecified; E11.65 Type 2 diabetes mellitus with hyperglycemia; E78.5 Hyperlipidemia, unspecified; I25.10 Atherosclerotic heart disease of native coronary artery without angina pectoris; I25.2 Old myocardial infarction; I10 Essential (primary) hypertension; F17.200 Nicotine dependence, unspecified, uncomplicated; Z90.89 Acquired absence of other organs; Z86.73 Personal history of transient ischemic attack (TIA), and cerebral infarction without residual deficits
CPT/HCPCS: 36415; 80048; 80307; 82040; 85025; 99285

== ENCOUNTER 2019-12-24 15:17 | Emergency (ER) | payer MEDICARE ==
[~2019-12-24] VITALS: Ht 175.3 cm; Wt 71.4 kg
[~2019-12-24 15:17] MED LIST changes: +LISI2.5T PO
--- NOTE | 2019-12-24 17:05 | NUR ---
xray studies completed and pt sleeping
--- NOTE | 2019-12-24 18:39 | NUR ---
REMAINS SLEEPING. AWAITING DISPO
[2019-12-24 19:07] VITALS: BP 149/84
--- NOTE | 2019-12-24 19:07 | NUR ---
REPORT TO ZACHARIAH WEEKS
== END 2019-12-24 19:54 | disposition home or self-care (01) ==
LOC: ED 19:45
DX: S16.1XXA Strain of muscle, fascia and tendon at neck level, initial encounter (principal); S40.012A Contusion of left shoulder, initial encounter; S70.02XA Contusion of left hip, initial encounter; R51 Headache; E11.65 Type 2 diabetes mellitus with hyperglycemia; Z86.73 Personal history of transient ischemic attack (TIA), and cerebral infarction without residual deficits; I10 Essential (primary) hypertension; E78.5 Hyperlipidemia, unspecified; I25.10 Atherosclerotic heart disease of native coronary artery without angina pectoris; I25.2 Old myocardial infarction; Z90.89 Acquired absence of other organs; Z88.1 Allergy status to other antibiotic agents; Z88.5 Allergy status to narcotic agent; Z88.8 Allergy status to other drugs, medicaments and biological substances; W05.0XXA Fall from non-moving wheelchair, initial encounter; Y93.89 Activity, other specified; Y92.410 Unspecified street and highway as the place of occurrence of the external cause; Y99.8 Other external cause status
CPT/HCPCS: 72125; 99284

== ENCOUNTER 2020-01-13 13:44 | Emergency (ER) | payer MEDICARE ==
[~2020-01-13] VITALS: Ht 180.3 cm; Wt 68.0 kg
[2020-01-13 13:54] VITALS: BP 145/85
--- NOTE | 2020-01-13 14:24 | NUR ---
patient arrives with congestion, chest tightness and cough that began 3 days ago. patient has runny nose. 95% on room air.
[2020-01-13 14:41] LABS: BASOPHILS # (AUTO) 0.02 x10^3/uL (0-0.1); BASOPHILS % (AUTO) 0 % (0-1); EOSINOPHILS # (AUTO) 0.23 x10^3/uL (0-0.4); EOSINOPHILS % (AUTO) 3 % (1-7); LYMPHOCYTES # (AUTO) 1.55 x10^3/uL (1-3.4); LYMPHOCYTES % (AUTO) 17 % (22-44); MD NO; MEAN CORPUSCULAR HEMOGLOBIN 31.3 pg (27.5-34.5); MEAN CORPUSCULAR HGB CONC 33.4 g/dL (33.2-36.2); MEAN CORPUSCULAR VOLUME 93.5 fL (81-97); MEAN PLATELET VOLUME 9.1 fL (7.4-10.4); MONOCYTES # (AUTO) 0.46 x10^3/uL (0.2-0.8); MONOCYTES % (AUTO) 5 % (2-9); NEUTROPHILS # (AUTO) 6.82 x10^3/uL (1.8-6.8); NEUTROPHILS % (AUTO) 75 % (42-75); PLATELET COUNT 209 x10^3/uL (130-400); RED BLOOD COUNT 4.77 x10^6/uL (4.38-5.82); RED CELL DISTRIBUTION WIDTH 13.4 % (9.4-14.8)
[2020-01-13 14:52] LABS: ALANINE AMINOTRANSFERASE 15 U/L (12-78); ANION GAP 4 mmol/L (5-15); CALCIUM 8.7 mg/dL (8.5-10.1); CHLORIDE 104 mmol/L (98-107); CREATININE 0.81 mg/dL (0.7-1.3)
[2020-01-13 14:57] LABS: ALKALINE PHOSPHATASE 178 U/L (45-117); BILIRUBIN,TOTAL 0.3 mg/dL (0.2-1.0); TOTAL PROTEIN 6.7 g/dL (6.4-8.2); TROPONIN I < 0.015 ng/mL (0.000-0.045)
--- NOTE | 2020-01-13 14:59 | NUR ---
cristal / pt caregiver
--- NOTE | 2020-01-13 16:12 | NUR ---
CARE FOR DC ONLY PROVIDED. PT SITTING UP ON GURNEY, NO ACUTE DISTRESS NOTED. NO IV TO DC. REVIEWED DC INSTRUCTIONS WITH PT, UNDERSTANDING VERBALIZED. ASSISTANCE PROVIDED TO GETTING DRESSED AND TO W/C. PTS CAREGIVER MINA [phone] TO NOTIFY OF PT DISCHARGED.
== END 2020-01-13 16:16 | disposition home or self-care (01) ==
LOC: ED 14:11
DX: B34.9 Viral infection, unspecified (principal); R07.89 Other chest pain; I10 Essential (primary) hypertension; E11.9 Type 2 diabetes mellitus without complications; E78.5 Hyperlipidemia, unspecified; I25.10 Atherosclerotic heart disease of native coronary artery without angina pectoris; I25.2 Old myocardial infarction; Z86.73 Personal history of transient ischemic attack (TIA), and cerebral infarction without residual deficits; F17.200 Nicotine dependence, unspecified, uncomplicated
CPT/HCPCS: 36415; 71045; 80053; 84484; 85025; 93005; 99285

== ENCOUNTER 2020-01-24 19:54 | Emergency (ER) | payer MEDICAID, MEDICARE ==
--- NOTE | 2020-01-24 19:58 | NUR ---
pg code juan manuel @[phone]
--- NOTE | 2020-01-24 20:07 | NUR ---
EPI X 2 GIVEN SO FAR SINCE ARRIVAL. CPR HAS BEEN CONTINUED. TO PALPABLE PULSES.
--- NOTE | 2020-01-24 20:16 | NUR ---
TIME OF 20:[address] WOODS
--- NOTE | 2020-01-24 20:16 | NUR ---
TOTAL OF 5 EPI GIVEN HERE. CPR PERFORMED WITH GOOD DISTAL PULSES. NO PULSES WITH ANY OF THE PULSE CHECKS.
--- NOTE | 2020-01-24 20:38 | NUR ---
ATTEMPTED TO NOTIFY FAMILY OF PT. PER MEDICAL RECORDS, NO NEXT OF KIN. PHONE NUMBER LISTED WAS CALLED, BUT PHONE STATES IT IS INACTIVE LINE.
--- NOTE | 2020-01-24 20:43 | NUR ---
FIELD MARKETING COORDINATOR CALLED AND SITA TOOK PT INFO. PER SITA, SHE DOESN'T KNOW IF THEY ARE GOING TO COME FOR THE PATIENT KAPIL. SITA TO CALL BACK DEPARTMENT FOR UPDATE OF PLAN FOR PT.
--- NOTE | 2020-01-24 20:52 | NUR ---
MISAEL YE, CALLED TO STATE THAT [facility] CALLED BACK TO ACCEPT THIS CASE. NO CASE NUMBER GIVEN AT THIS TIME.
--- NOTE | 2020-01-24 21:01 | NUR ---
ATTEMPTED TO CALL DONOR NETWORK X 3. NOT ABLE TO GET THROUGH AT THIS TIME. WILL KEEP TRYING.
--- NOTE | 2020-01-24 21:11 | NUR ---
SPOKE WITH LIONEL AT [facility]. PER LIONEL, REFERRAL NUMBER IS [phone]. PER LIONEL, WILL RECEIVE A CALL BACK FOR ELIGIBILITY IN APPROXIMATELY 10-15 MINUTES.
--- NOTE | 2020-01-24 21:46 | NUR ---
TALKED TO PT NIECE. PER FAMILY, THEY ARE ON THEIR WAY DOWN TO SEE PT AND GATHER BELONGINGS.
--- NOTE | 2020-01-24 22:06 | NUR ---
FAMILY HAS ARRIVED AT THIS TIME.
--- NOTE | 2020-01-24 22:10 | NUR ---
POC DISCUSSED WITH PTS FAMILY BY WILLAM WEEKS. PTS ONLY BELONGINGS HE ARRIVED WITH WERE A CELLHONE WITH TOOL CHECKER. THIS CELLPHONE AND TOOL CHECKER WAS GIVEN TO PTS NIECE. PTS NIECE SIGNED THE MORTUARY RELEASE FORM.
--- NOTE | 2020-01-24 22:39 | NUR ---
TOE TAG APPLIED. CONFIRMED TAG MATCHES PATIENT'S WRISTBAND. PT PLACED IN BODYBAGX2. STICKERED TAG APPLIED TO ZIPPER. CONFIRMED STICKER TAG MATCHES PTS INFORMATION. PT TO BE TRANSPORTED TO [facility].
--- NOTE | 2020-01-24 23:28 | NUR ---
PT TRANSPORTED TO [facility] WITH [place] AND ASSISTANCE FROM [employer]. PT PLACED IN FRIDGE 1 IN [facility], AND WAS SIGNED INTO [facility] RECORDBOOK. TAG PLACED ON FRIDGE FOR PT IDENTIFICATION. [facility] PAPERWORK GIVEN TO SHORERGAMALIEL WEEKS AT THIS TIME.
--- NOTE | 2020-01-25 00:26 | NUR ---
DONOR NETWORK CALLED BACK FOR MORE INFORMATION. INFO GIVEN. SUITABLE FOR TISSUE DONATION PER RHINA WITH TISSUE BANK #[id number]
== END 2020-01-24 23:33 | disposition expired ==
LOC: MERGE 19:54 → EDSEX 19:54 → EDBD 19:54 → ED 20:22
DX: I46.9 Cardiac arrest, cause unspecified (principal); E11.65 Type 2 diabetes mellitus with hyperglycemia; I10 Essential (primary) hypertension; E78.00 Pure hypercholesterolemia, unspecified; E78.5 Hyperlipidemia, unspecified; I25.10 Atherosclerotic heart disease of native coronary artery without angina pectoris; I25.2 Old myocardial infarction; Z90.89 Acquired absence of other organs; Z86.73 Personal history of transient ischemic attack (TIA), and cerebral infarction without residual deficits
CPT/HCPCS: 92950; 99291